=== PATIENT | female | born 1985 | race Caucasian/White ===

== ENCOUNTER 2016-03-05 11:42 | Emergency (ER) | payer SELFPAY ==
[2016-03-05 11:46] VITALS: BP 120/55
--- NOTE | 2016-03-05 11:51 | ER Document Report ---
ED Medical Screen (RME) - General Stated Complaint: TOOTHACHE Time seen by provider: 11:50 Mode of Arrival: Ambulatory Information source: Patient Notes: 30-year-old female complaining of persistent first molar lower left infection and pain. sHe is waiting to get paid to see the dentist to get it pulled. it worsened when she ate something hot last night. TRAVEL OUTSIDE OF THE [place] IN LAST 30 DAYS: No - Related Data Allergies/Adverse Reactions: No Known Allergies Allergy (Verified 03/05/16 11:49) Past Medical History Past Surgical History: Reports: Hx Oral Surgery - Immunizations Immunizations up to date: Yes Hx Diphtheria, Pertussis, Tetanus Vaccination: Yes Physical Exam - Vital signs Vitals: Temp Pulse Resp BP Pulse Ox 97.6 F 117 H 16 120/55 L 100 03/05/16 11:45 03/05/16 11:45 03/05/16 11:45 03/05/16 11:45 03/05/16 11:45 Course - Vital Signs Vital signs: Temp Pulse Resp BP Pulse Ox 97.6 F 117 H 16 120/55 L 100 03/05/16 11:45 03/05/16 11:45 03/05/16 11:45 03/05/16 11:45 03/05/16 11:45
--- NOTE | 2016-03-05 12:16 | ER Document Report ---
ED General - General Chief Complaint: Toothache Stated Complaint: TOOTHACHE Time seen by provider: 12:10 Mode of Arrival: Ambulatory Notes: This is a 30-year-old female that presents today with tooth pain. Patient states that she had two of her back teeth on the left side pulled a year ago. She's been having throbbing pain since February 13 2016. Pain is aggravated with eating. Pain radiates up to the left ear. She states she vomited one time today and admits to nausea. Denies hematemesis. Denies fever chills shortness of breath. Admits to odynophagia, denies dysphagia. She is able to eat solid and drink liquids. She is not scheduled for a dentist appointment, but she is seen by family dentistry. She states that she plans on going this Friday. TRAVEL OUTSIDE OF THE [place] IN LAST 30 DAYS: No - Related Data Allergies/Adverse Reactions: No Known Allergies Allergy (Verified 03/05/16 11:49) Past Medical History - General Information source: Patient - Social History Smoking Status: Current Every Day Smoker - Smokes 8 cigarettes per day for the past 20 years Chew tobacco use (# tins/day): No Frequency of alcohol use: Rare Family History: Reviewed & Not Pertinent Patient has suicidal ideation: No Patient has homicidal ideation: No Past Surgical History: Reports: Hx Oral Surgery - Immunizations Immunizations up to date: Yes Hx Diphtheria, Pertussis, Tetanus Vaccination: Yes Review of Systems - Review of Systems Constitutional: denies: Chills, Fever EENT: See HPI Cardiovascular: denies: Chest pain, Palpitations Respiratory: denies: Cough, Hurts to breathe Gastrointestinal: denies: Abdomen distended, Abdominal pain Genitourinary: No symptoms reported Musculoskeletal: See HPI Skin: No symptoms reported Hematologic/Lymphatic: No symptoms reported Neurological/Psychological: No symptoms reported Physical Exam - Vital signs Vitals: Temp Pulse Resp BP Pulse Ox 97.6 F 117 H 16 120/55 L 100 03/05/16 11:45 03/05/16 11:45 03/05/16 11:45 03/05/16 11:45 03/05/16 11:45 - General General appearance: Appears well, Alert In distress: None - HEENT Eyes: Normal Conjunctiva: Normal Teeth diagram: 1 - dental fracture. dental decay noted 2 - two teeth pulled 3 - dental decay 4 - dental decay Pharynx: Normal - No tonsillar exudates or erythema. No hypertrophy. No: Peritonsillar abscess, Tonsillar hypertrophy - Respiratory Respiratory status: No respiratory distress Chest status: Nontender Breath sounds: Normal. No: Rales, Rhonchi, Stridor, Wheezing Chest palpation: Normal - Cardiovascular Rhythm: Regular Heart sounds: Normal auscultation - Abdominal Inspection: Normal Distension: No distension - Extremities General upper extremity: Normal inspection General lower extremity: Normal inspection - Neurological Cognition: Normal. No: Confused - Psychological Associated symptoms: Normal affect, Normal mood - Skin Skin Temperature: Warm Skin Moisture: Dry Skin Color: Normal Course - Re-evaluation Re-evalutation: 03/05/16 13:07 Patient stated that she would follow-up with dentist as Friday once she gets her paycheck. She was able to swallow water when I gave her a cup of water to drink from. No water was retained in the mouth. She spoke in full sentences. - Vital Signs Vital signs: Temp Pulse Resp BP Pulse Ox 97.6 F 117 H 16 120/55 L 100 03/05/16 11:45 03/05/16 11:45 03/05/16 11:45 03/05/16 11:45 03/05/16 11:45 Discharge - Discharge Clinical Impression: Pain, dental Condition: Good Disposition: HOME, SELF-CARE Additional Instructions: Return to the emergency department if symptoms worsen. Follow-up with primary care and dentist as soon as possible. Prescriptions: Ondansetron [Zofran Odt 4 mg Tablet] 1 - 2 tab PO Q4H PRN #15 tab.rapdis PRN Reason: For Nausea/Vomiting Penicillin V Potassium [Penicillin Vk 500 mg Tablet] 500 mg PO BID #20 tablet Forms: Return to Work Referrals: DENTISTRY [Provider Group] - Follow up as needed
[2016-03-05] MEDS ORDERED: HYDROCODONE/ACETAMINOPHEN 5-325 MG 6 TAB/DSPK PO PRN (12:24)
== END 2016-03-05 12:48 | disposition home or self-care (01) ==
LOC: ER 11:42
DX: K08.89 Other specified disorders of teeth and supporting structures (principal); K02.9 Dental caries, unspecified; R11.2 Nausea with vomiting, unspecified; F17.210 Nicotine dependence, cigarettes, uncomplicated
CPT/HCPCS: 99282

== ENCOUNTER 2016-03-17 00:57 | Emergency (ER) | payer SELFPAY | END 2016-03-17 01:20 | disposition left against medical advice (07) | LOC: ER 00:57 | DX: Z53.21 Procedure and treatment not carried out due to patient leaving prior to being seen by health care provider (principal) ==

== ENCOUNTER 2016-03-17 11:22 | Emergency (ER) | payer SELFPAY ==
[2016-03-17] MEDS ORDERED: DIPHENHYDRAMINE HCL 25 MG CAPSULE PO ONE (11:53)
[2016-03-17] MEDS ORDERED: METOCLOPRAMIDE HCL 10 MG TABLET PO ONE (11:53)
--- NOTE | 2016-03-17 12:00 | ER Document Report ---
ED Medical Screen (RME) - General Stated Complaint: VOMITING Mode of Arrival: Ambulatory Information source: Patient Notes: 30 y/o F presents to ED c/o intermittently persistent n/v and abd pain over the last month. States is but unsure how far along. LMP 12/22/15. Denies fever, vaginal bleeding or discharge. I have greeted and performed a rapid initial assessment of this patient. A comprehensive ED assessment and evaluation of the patient, analysis of test results and completion of the medical decision making process will be conducted by additional ED providers. TRAVEL OUTSIDE OF THE [place] IN LAST 30 DAYS: No - Related Data Allergies/Adverse Reactions: No Known Allergies Allergy (Verified 03/17/16 11:52) Past Medical History - Social History Frequency of alcohol use: None Drug Abuse: Marijuana Renal/ Medical History: Denies: Hx Peritoneal Dialysis Past Surgical History: Reports: Hx Oral Surgery - Immunizations Immunizations up to date: Yes Hx Diphtheria, Pertussis, Tetanus Vaccination: Yes Physical Exam - Vital signs Vitals: Temp Pulse Resp BP Pulse Ox 97.7 F 65 20 100/60 100 03/17/16 11:49 03/17/16 11:49 03/17/16 11:49 03/17/16 11:49 03/17/16 11:49 - General General appearance: Alert In distress: None - Respiratory Respiratory status: No respiratory distress Course - Vital Signs Vital signs: Temp Pulse Resp BP Pulse Ox 97.7 F 65 20 100/60 100 03/17/16 11:49 03/17/16 11:49 03/17/16 11:49 03/17/16 11:49 03/17/16 11:49
[2016-03-17 12:25] LABS: ABSOLUTE LYMPHOCYTES (AUTO) 1.3 10^3/uL (0.5-4.7); ABSOLUTE MONOCYTES (AUTO) 0.4 10^3/uL (0.1-1.4); ABSOLUTE NEUT (AUTO) 5.2 10^3/uL (1.7-8.2); BASOPHILS % (AUTO) 0.6 % (0-2); EOSINOPHILS % (AUTO) 0.6 % (0-6); HEMATOCRIT 42.4 % (36.0-47.0); HEMOGLOBIN 13.9 g/dL (12.0-15.5); HGB HCT DIFFERENCE -0.7; LYMPHOCYTES % (AUTO) 18.2 % (13-45); MEAN CORPUSCULAR HEMOGLOBIN 27.1 pg (27.0-33.4); MEAN CORPUSCULAR HGB CONC 32.7 g/dL (32.0-36.0); MEAN CORPUSCULAR VOLUME 83 fl (80-97); MONOCYTES % (AUTO) 5.6 % (3-13); RED BLOOD COUNT 5.11 10^6/uL (3.72-5.28); RED CELL DISTRIBUTION WIDTH 15.1 % (11.5-14.0); WHITE BLOOD COUNT 6.9 10^3/uL (4.0-10.5)
[2016-03-17 12:27] LABS: APPEARANCE,URINE SLIGHTLY-CLOUDY; BILIRUBIN,URINE NEGATIVE (NEGATIVE); GLUCOSE, URINE NEGATIVE (NEGATIVE); KETONES,URINE 80 mg/dL (NEGATIVE); LEUKOCYTE ESTERASE,URINE TRACE (NEGATIVE); NITRITE,URINE NEGATIVE (NEGATIVE); PROTEIN,URINE NEGATIVE (NEGATIVE); UROBILINOGEN,URINE NEGATIVE mg/dL (<2.0)
[2016-03-17 12:44] LABS: ALANINE AMINOTRANSFERASE 13 U/L (9-52); ALBUMIN 4.8 g/dL (3.5-5.0); ALKALINE PHOSPHATASE 54 U/L (38-126); ASPARTATE AMINO TRANSFERASE 21 U/L (14-36); BILIRUBIN,TOTAL 0.9 mg/dL (0.2-1.3); BLOOD UREA NITROGEN 14 mg/dL (7-20); CALCIUM 9.8 mg/dL (8.4-10.2); CARBON DIOXIDE 15 mmol/L (22-30); CHLORIDE 100 mmol/L (98-107); CREATININE RESULT 0.64 mg/dL (0.52-1.25); GLUCOSE 51 mg/dL (75-110); LIPASE 112.5 U/L (23-300); SODIUM 135.8 mmol/L (137-145); TOTAL PROTEIN 8.4 g/dL (6.3-8.2)
[2016-03-17 13:03] LABS: ANION GAP 21 (5-19)
[2016-03-17] MEDS ORDERED: DEXTROSE 5%-NORMAL SALINE 1,000 ML IV ONE (13:51)
--- NOTE | 2016-03-17 14:21 | ER Document Report ---
ED General - General Chief Complaint: Abdominal Pain Stated Complaint: VOMITING Time seen by provider: 14:20 Mode of Arrival: Ambulatory Information source: Patient Notes: This is a 30-year-old female 9 para 4, for termination of pregnancies, last normal menstrual period December 21 presents to the emergency room with nausea, vomiting, abdominal cramping. Patient denies vaginal bleeding. TRAVEL OUTSIDE OF THE [place] IN LAST 30 DAYS: No - HPI Onset: Last week Onset/Duration: Gradual Quality of pain: No pain Severity: None Pain Level: Denies Associated symptoms: Nausea, Vomiting. denies: Chills, Nonproductive cough, Productive cough, Diarrhea, Fever, Shortness of breath Exacerbated by: Denies Relieved by: Denies Similar symptoms previously: No Recently seen / treated by doctor: No - Related Data Allergies/Adverse Reactions: No Known Allergies Allergy (Verified 03/17/16 11:52) Past Medical History - General Information source: Patient - Social History Smoking Status: Former Smoker Cigarette use (# per day): No Chew tobacco use (# tins/day): No Frequency of alcohol use: None Drug Abuse: Marijuana Family History: Reviewed & Not Pertinent Patient has suicidal ideation: No Patient has homicidal ideation: No - Medical History Medical History: Negative Renal/ Medical History: Denies: Hx Peritoneal Dialysis Past Surgical History: Reports: Hx Oral Surgery - Immunizations Immunizations up to date: Yes Hx Diphtheria, Pertussis, Tetanus Vaccination: Yes Review of Systems - Review of Systems Constitutional: denies: Chills, Fever EENT: No symptoms reported Cardiovascular: No symptoms reported Respiratory: No symptoms reported Gastrointestinal: See HPI Genitourinary: No symptoms reported Female Genitourinary: No symptoms reported Musculoskeletal: No symptoms reported Skin: No symptoms reported Hematologic/Lymphatic: No symptoms reported Neurological/Psychological: No symptoms reported Physical Exam - Vital signs Vitals: Temp Pulse Resp BP Pulse Ox 97.7 F 65 20 100/60 100 03/17/16 11:49 03/17/16 11:49 03/17/16 11:49 03/17/16 11:49 03/17/16 11:49 Notes: Physical exam: GENERAL: 30-year-old female, alert and oriented 3, no acute distress HEAD: Atraumatic, normocephalic. EYES: Pupils equal round and reactive to light, extraocular movements intact, sclera anicteric, conjunctiva are normal. ENT: TMs normal, nares patent, oropharynx clear without exudates. Moist mucous membranes. NECK: Normal range of motion, supple without lymphadenopathy or JVD. LUNGS: Breath sounds clear to auscultation bilaterally and equal. No wheezes rales or rhonchi. HEART: Regular rate and rhythm without murmurs, rubs or gallops. ABDOMEN: Soft, nontender, normoactive bowel sounds. No guarding, no rebound. No masses appreciated. EXTREMITIES: Normal range of motion, no pitting or edema. No clubbing or cyanosis. NEUROLOGICAL: Cranial nerves II through XII grossly intact. Normal speech, normal gait. PSYCH: Normal mood, normal affect. SKIN: Warm, Dry, normal turgor, no rashes or lesions noted. Course - Vital Signs Vital signs: Temp Pulse Resp BP Pulse Ox 98.0 F 68 16 110/62 100 03/17/16 18:20 03/17/16 18:20 03/17/16 18:20 03/17/16 18:20 03/17/16 18:20 - Laboratory Result Diagrams: 03/17/16 12:08 03/17/16 12:08 Laboratory results interpreted by me: 03/17/16 03/17/16 03/17/16 12:08 12:08 12:08 RDW 15.1 H Sodium 135.8 L Carbon Dioxide 15 L Anion Gap 21 H Glucose 51 L Total Protein 8.4 H Beta HCG, Quant 007851.00 H Urine Ketones 80 H Ur Leukocyte Esterase TRACE H - Diagnostic Test Radiology reviewed: Image reviewed, Reports reviewed - Intrauterine Discharge - Discharge Clinical Impression: Hyperemesis gravidarum Condition: Stable Disposition: HOME, SELF-CARE Instructions: Antinausea Medication ([facility]), Reglan ([facility]), Hyperemesis Gravidarum ([facility]) Additional Instructions: Recommendations: Drink fluids: Have Gatorade and half orders good. He wanted have some sugar and the fluid you drink. Advance diet slowly. Eat small, frequent meals. Vitamin B sixes sometimes good for nausea. Unisom [id number] is sometimes effective. Peppermint and jero products are helpful. Take Reglan as needed for nausea. Follow-up with an OB doctor: I left the number for the women[facility] clinic. Return to the emergency room if you're unable to tolerate fluids. Prescriptions: Metoclopramide HCl [Reglan 10 mg Tablet] 1 - 2 tab PO ASDIR PRN #25 tablet PRN Reason: Referrals: SRAVANTHI PHAM MD [ACTIVE STAFF] - Follow up as needed (This is the number for the woman[facility] clinic: Call for an appointment.)
[2016-03-17 18:21] VITALS: BP 110/62
== END 2016-03-17 18:20 | disposition home or self-care (01) ==
LOC: ER 11:22
DX: O21.0 Mild hyperemesis gravidarum (principal); O26.891 Other specified pregnancy related conditions, first trimester; R10.9 Unspecified abdominal pain; Z3A.12 12 weeks gestation of pregnancy; Z87.891 Personal history of nicotine dependence
CPT/HCPCS: 36415; 76801; 80053; 81001; 83690; 84702; 85025; 96365; 99284

== ENCOUNTER 2016-08-29 23:03 | Outpatient (CLI) | payer MEDICAID ==
[2016-08-29 23:45] LABS: APPEARANCE,URINE CLEAR; BILIRUBIN,URINE NEGATIVE (NEGATIVE); GLUCOSE, URINE NEGATIVE (NEGATIVE); KETONES,URINE NEGATIVE (NEGATIVE); LEUKOCYTE ESTERASE,URINE NEGATIVE (NEGATIVE); NITRITE,URINE NEGATIVE (NEGATIVE); PROTEIN,URINE NEGATIVE (NEGATIVE); URINE SPECIFIC GRAVITY 1.003; UROBILINOGEN,URINE NEGATIVE mg/dL (<2.0)
[2016-08-29 23:56] LABS: URINE BARBITURATES SCREEN NEGATIVE; URINE METHADONE SCREEN NEGATIVE; URINE OPIATES LOW NEGATIVE; URINE PHENCYCLIDINE SCREEN NEGATIVE
--- NOTE | 2016-08-30 00:46 | Non Stress Test Report ---
Non Stress Test Datetime Report Generated by CPN: 08/30/2016 00:46 DEMOGRAPHIC EGA NST: 32.3 INDICATION Indication for Study: Ordered by Provider MONITORING Monitor Explained: Monitor Explained; Test Explained; Patient Verbalized Understanding Time on Monitor: 08/29/2016 23:27 Time off Monitor: 08/30/2016 00:43 NST Duration: 76 NST INTERVENTIONS NST Interventions: None BABY A: [id number] BABY A Movement : Present Contraction Frequency : none FHR Baseline : 130 Accelerations : 15X15 Decelerations : None Variability : Moderate 6-25bpm NST Review: Meets Criteria for Reactive NST NST Review and Verified By : Denise Espinal, RN NST Results: Reactive NST REPORT Report Trigger: Send Report
== END 2016-08-30 00:54 | disposition home or self-care (01) ==
LOC: LC 23:03
PROVIDERS: ATTEND Student in an Organized Health Care Education/Training Program
PROC: 4A1HXCZ Monitoring of Products of Conception, Cardiac Rate, External Approach (ICD-10-PCS; principal; 2016-08-29)
DX: Z34.93 Encounter for supervision of normal pregnancy, unspecified, third trimester (principal); Z36 Encounter for antenatal screening of mother; Z3A.32 32 weeks gestation of pregnancy
CPT/HCPCS: 59025; 80307; 81001

== ENCOUNTER 2016-10-15 05:33 | Outpatient (CLI) | payer MEDICAID ==
[2016-10-15 06:07] LABS: APPEARANCE,URINE SLIGHTLY-CLOUDY; BILIRUBIN,URINE NEGATIVE (NEGATIVE); GLUCOSE, URINE NEGATIVE (NEGATIVE); KETONES,URINE NEGATIVE (NEGATIVE); LEUKOCYTE ESTERASE,URINE NEGATIVE (NEGATIVE); NITRITE,URINE NEGATIVE (NEGATIVE); PROTEIN,URINE NEGATIVE (NEGATIVE); URINE SPECIFIC GRAVITY 1.003; UROBILINOGEN,URINE NEGATIVE mg/dL (<2.0)
[2016-10-15 06:21] LABS: URINE BARBITURATES SCREEN NEGATIVE; URINE METHADONE SCREEN NEGATIVE; URINE OPIATES LOW NEGATIVE; URINE PHENCYCLIDINE SCREEN NEGATIVE
--- NOTE | 2016-10-15 06:52 | Non Stress Test Report ---
Non Stress Test Datetime Report Generated by CPN: 10/15/2016 06:52 DEMOGRAPHIC Test Number: 2 EGA NST: 39.1 INDICATION Indication for Study: Ordered by Provider MONITORING Monitor Explained: Monitor Explained; Test Explained; Patient Verbalized Understanding Time on Monitor: 10/15/2016 05:47 Time off Monitor: 10/15/2016 06:33 NST Duration: 46 NST INTERVENTIONS NST Interventions: PO Hydration; Reposition Patient Physician Notified NST: Dr. Ace BABY A: [id number] BABY A Movement : Present; Decreased Contraction Frequency : x1 FHR Baseline : 125 Accelerations : 15X15 Decelerations : None Variability : Moderate 6-25bpm NST Review: Meets Criteria for Reactive NST NST Review and Verified By : ZHANNA Chacon Results: Reactive NST REPORT Report Trigger: Send Report
== END 2016-10-15 06:46 | disposition home or self-care (01) ==
LOC: LC 05:33
PROVIDERS: ATTEND Obstetrics & Gynecology
PROC: 4A1HXCZ Monitoring of Products of Conception, Cardiac Rate, External Approach (ICD-10-PCS; principal; 2016-10-15)
DX: O36.8130 Decreased fetal movements, third trimester, not applicable or unspecified (principal); Z3A.39 39 weeks gestation of pregnancy
CPT/HCPCS: 59025; 80307; 81005

== ENCOUNTER 2016-10-22 19:03 | Outpatient (CLI) | payer MEDICAID ==
[2016-10-22 19:44] LABS: APPEARANCE,URINE CLOUDY; BILIRUBIN,URINE NEGATIVE (NEGATIVE); GLUCOSE, URINE 50 mg/dL (NEGATIVE); KETONES,URINE NEGATIVE (NEGATIVE); LEUKOCYTE ESTERASE,URINE TRACE (NEGATIVE); NITRITE,URINE NEGATIVE (NEGATIVE); PROTEIN,URINE NEGATIVE (NEGATIVE); URINE SPECIFIC GRAVITY 1.005; UROBILINOGEN,URINE NEGATIVE mg/dL (<2.0)
[2016-10-22 19:59] LABS: URINE BARBITURATES SCREEN NEGATIVE; URINE METHADONE SCREEN NEGATIVE; URINE OPIATES LOW NEGATIVE; URINE PHENCYCLIDINE SCREEN NEGATIVE
--- NOTE | 2016-10-22 20:24 | Non Stress Test Report ---
Non Stress Test Datetime Report Generated by CPN: 10/22/2016 20:23 DEMOGRAPHIC Test Number: 3 EGA NST: 40.1 INDICATION Indication for Study: Other Indication for Study (NST) Other: LC MONITORING Monitor Explained: Monitor Explained; Test Explained; Patient Verbalized Understanding Time on Monitor: 10/22/2016 19:30 Time off Monitor: 10/22/2016 20:12 NST Duration: 42 NST INTERVENTIONS NST Interventions: PO Hydration; Reposition Patient Physician Notified NST: Dr Ace BABY A: [id number] BABY A Movement : Present Contraction Frequency : Irritability FHR Baseline : 135 Accelerations : 15X15 Decelerations : None Variability : Moderate 6-25bpm NST Review: Meets Criteria for Reactive NST NST Review and Verified By : Christopher Ramirez RN NST Results: Reactive NST REPORT Report Trigger: Send Report
== END 2016-10-22 20:16 | disposition home or self-care (01) ==
LOC: LC 19:03
PROVIDERS: ATTEND Obstetrics & Gynecology
PROC: 4A1HXCZ Monitoring of Products of Conception, Cardiac Rate, External Approach (ICD-10-PCS; principal; 2016-10-22)
DX: O47.1 False labor at or after 37 completed weeks of gestation (principal); Z3A.40 40 weeks gestation of pregnancy
CPT/HCPCS: 59025; 80307; 81005

== ENCOUNTER 2016-10-26 10:56 | Inpatient (IN) | payer MEDICAID ==
[2016-10-26] MEDS ORDERED: RINGERS SOLUTION,LACTATED 1,000 ML IV PRN (11:19)
[2016-10-26] MEDS ORDERED: RINGERS SOLUTION,LACTATED 1,000 ML IV ONE (11:19)
[2016-10-26] MEDS ORDERED: BENZOIN/ALOE VERA/STORAX/TOLU TINCTURE 60 ML TP PRN (11:30)
[2016-10-26] MEDS ORDERED: FENTANYL/BUPIVACAINE/NS/PF 200 MCG/100 ML RTUINJ EPI PRN (11:30)
[2016-10-26] MEDS ORDERED: BUPIVACAINE HCL 0.25 % INJ/PF (2.5 MG/1 ML) 30 ML VIAL INFIL PRN (11:30)
[2016-10-26] MEDS ORDERED: FENTANYL CITRATE INJ/PF 100 MCG/2 ML AMPUL EPI PRN (11:30)
[2016-10-26] MEDS ORDERED: EPHEDRINE SULFATE INJ 50 MG/1 ML AMPULE IV PRN (11:30)
[2016-10-26 11:35] LABS: APPEARANCE,URINE CLEAR; BILIRUBIN,URINE NEGATIVE (NEGATIVE); GLUCOSE, URINE NEGATIVE (NEGATIVE); KETONES,URINE NEGATIVE (NEGATIVE); LEUKOCYTE ESTERASE,URINE TRACE (NEGATIVE); NITRITE,URINE NEGATIVE (NEGATIVE); PROTEIN,URINE NEGATIVE (NEGATIVE); URINE SPECIFIC GRAVITY 1.003; UROBILINOGEN,URINE NEGATIVE mg/dL (<2.0)
[2016-10-26] MEDS ORDERED: MISOPROSTOL 0.2 MG TABLET ONE (11:43)
[2016-10-26] MEDS ORDERED: OXYTOCIN/NORMAL SALINE 20 UNIT/1,000 ML RTUINJ ONE (11:44)
[2016-10-26] MEDS ORDERED: LIDOCAINE 1% INJ-PF (10 MG/ML) 30 ML SDV ONE (11:44)
[2016-10-26 11:57] LABS: ABSOLUTE EOSINOPHILS # (AUTO) 0.1 10^3/uL (0.0-0.6); ABSOLUTE LYMPHOCYTES (AUTO) 1.1 10^3/uL (0.5-4.7); ABSOLUTE MONOCYTES (AUTO) 0.7 10^3/uL (0.1-1.4); ABSOLUTE NEUT (AUTO) 9.7 10^3/uL (1.7-8.2); BASOPHILS % (AUTO) 0.2 % (0-2); EOSINOPHILS % (AUTO) 0.7 % (0-6); HEMATOCRIT 34.3 % (36.0-47.0); HEMOGLOBIN 11.2 g/dL (12.0-15.5); HGB HCT DIFFERENCE -0.7; LYMPHOCYTES % (AUTO) 9.8 % (13-45); MEAN CORPUSCULAR HEMOGLOBIN 28.2 pg (27.0-33.4); MEAN CORPUSCULAR HGB CONC 32.7 g/dL (32.0-36.0); MEAN CORPUSCULAR VOLUME 86 fl (80-97); MONOCYTES % (AUTO) 6.2 % (3-13); RED BLOOD COUNT 3.98 10^6/uL (3.72-5.28); RED CELL DISTRIBUTION WIDTH 13.7 % (11.5-14.0); SEGMENTED NEUTROPHILS % (AUTO) 83.1 % (42-78); WHITE BLOOD COUNT 11.7 10^3/uL (4.0-10.5)
[2016-10-26 11:58] LABS: URINE BARBITURATES SCREEN NEGATIVE; URINE METHADONE SCREEN NEGATIVE; URINE OPIATES LOW NEGATIVE; URINE PHENCYCLIDINE SCREEN NEGATIVE
[2016-10-26] MEDS ORDERED: FENTANYL CITRATE INJ/PF 100 MCG/2 ML AMPUL ONE (12:18)
[2016-10-26] MEDS ORDERED: EPHEDRINE SULFATE INJ 50 MG/1 ML AMPULE ONE (12:18)
[2016-10-26] MEDS ORDERED: PHENYLEPHRINE HCL INJ/PF 10 MG/1 ML SDV ONE (12:18)
[2016-10-26] MEDS ORDERED: BUPIVACAINE HCL 0.25 % INJ/PF (2.5 MG/1 ML) 30 ML VIAL ONE (12:19)
[2016-10-26] MEDS ORDERED: FENTANYL/BUPIVACAINE/NS/PF 200 MCG/100 ML RTUINJ EPI ONE (12:19)
[2016-10-26] MEDS ORDERED: DIPH/PERTUSS(ACELL)/TETANUS VAC/PF 0.5 ML SYR (>=10YO) IM PRN (14:55)
[2016-10-26] MEDS ORDERED: ZOLPIDEM TARTRATE 5 MG TABLET PO PRN (14:55)
[2016-10-26] MEDS ORDERED: GLYCERIN/WITCH HAZEL LEAF 1 EACH MED..PAD TP PRN (14:55)
[2016-10-26] MEDS ORDERED: MAGNESIUM HYDROXIDE SUSP 30 ML UDCUP PO PRN (14:55)
[2016-10-26] MEDS ORDERED: BENZOCAINE/MENTHOL AEROSOL SPRAY 56 ML TOP PRN (14:55)
[2016-10-26] MEDS ORDERED: PROMETHAZINE HCL 25 MG SUPP.RECT PR PRN (14:55)
[2016-10-26] MEDS ORDERED: DIPHENHYDRAMINE HCL 25 MG CAPSULE PO PRN (14:55)
[2016-10-26] MEDS ORDERED: DIBUCAINE 1% OINTMENT 28 GM TP PRN (14:55)
[2016-10-26] MEDS ORDERED: ACETAMINOPHEN 325 MG TABLET PO PRN (14:55)
[2016-10-26] MEDS ORDERED: ACETAMINOPHEN WITH CODEINE #3 TABLET PO PRN (14:55)
[2016-10-26] MEDS ORDERED: NA PHOS,M-B/NA PHOS,DI-BA (ADULT) 133 ML ENEMA PR PRN (14:55)
[2016-10-26] MEDS ORDERED: ACETAMINOPHEN 650 MG SUPP.RECT PR PRN (14:55)
[2016-10-26] MEDS ORDERED: PROMETHAZINE HCL INJ 25 MG/1 ML VIAL IV PRN (14:55)
[2016-10-26] MEDS ORDERED: MEASLES,MUMPS&RUBELLA VACC/PF 0.5 ML VIAL SUBCUT PRN (14:55)
[2016-10-26] MEDS ORDERED: OXYTOCIN/NORMAL SALINE 20 UNIT/1,000 ML RTUINJ IV PRN (14:55)
[2016-10-26] MEDS ORDERED: PSEUDOEPHEDRINE HCL 30 MG TABLET PO PRN (14:55)
[2016-10-26] MEDS ORDERED: PROMETHAZINE HCL 25 MG TABLET PO PRN (14:55)
[2016-10-26] MEDS ORDERED: IBUPROFEN 800 MG TABLET ONE (16:06)
[2016-10-26] MEDS: IBUPROFEN 800 MG TABLET PO SCH (16:17)
--- NOTE | 2016-10-26 17:10 | Admission Physical ---
Datetime Report Generated by CPN: 10/26/2016 17:10 CURRENT ADMISSION Chief Complaint: Uterine Contractions Indication for Induction: Not Applicable Admit Plan: Admit to Unit; Initiate Labor Protocol ALLERGIES Medication Allergies: No Medication Allergies: No Known Allergies (10/25/2016) Medication Allergies: No Known Allergies (10/22/2016) Medication Allergies: No Known Allergies (10/15/2016) Medication Allergies: No Known Allergies (03/17/2016) Latex: Unknown Food Allergies: N/A Environmental Allergies: N/A OBSTETRICAL HISTORY EDC: 10/21/2016 00:00 : 9 Para: 4 Term: 4 : 0 SAB: 0 IAB: 4 Ectopic: 0 Livin Cesareans: 0 VBACs: 0 Multiple Births: 0 Gestational Diabetes: No Rh Sensitization: No Incompetent Cervix: No KENNETH: No Infertility: No ART Treatment: No Uterine Anomaly: No IUGR: No Hx Previous C/S: No Macrosomia: No Hx Loss/Stillborn: No PIH: No Hx : No Placenta Previa/Abruption: No Depression/PP Depression: Yes PTL/PROM: No Post Hemorrhage: No Current Procedures: Ultrasound Obstetrical History Comments: G1--IAB 1998 G2-----epidural--7lb 7 oz G3--IAB 2006 G4-----natural--7lb G5-----natural--7lb 6oz G6--2014 IAB - IAB G8----epidural--7lb 3oz G9--Present SEE RECORDS Alcohol: No Marijuana : Yes Marijuana Frequency: Occasional Previous Treatment: None Marijuana Comments: last use June 2016 Cocaine: No Other Illicit Drugs: No Cigarettes: Current Everyday Smoker. [id number] Cigarette Frequency: > 10 per day Advised to Stop: Yes MEDICAL HISTORY Diabetes: No Blood Transfusion: No Pulmonary Disease (Asthma, TB): No Breast Disease: No Hypertension: No Transformer Tester Surgery: No Heart Disease: No Hosp/Surgery: No Autoimmune Disorder: No Anesthetic Complications: No Kidney Disease: Yes Abnormal Pap Smear: No Neuro/Epilepsy: No Psychiatric Disorders: Yes Other Medical Diseases: No Hepatitis/Liver Disease: No Significant Family History: No Varicosities/Phlebitis: No Trauma/Violence : No Thyroid Dysfunction: No Medical History Comments: UTIs oral surgery 2013 INFECTIOUS HISTORY Gonorrhea: Yes Genital Herpes: No Chlamydia: No Tuberculosis: No Syphilis: No Hepatitis: No HIV/AIDS Exposure: No Rash or Viral Illness: No HPV: No Infectious History Comments: hx gonorrhea PHYSICAL EXAM General: Normal HEENT: Normal Neurologic: Normal Thyroid: Normal Heart: Normal Lungs: Normal Breast: Deferred Back: Normal Abdomen: Normal Genitourinary Exam: Normal Extremities: Normal DTRs: Normal Pelvic Type: Adequate Vital Signs: Reviewed VAGINAL EXAM Dilatation: 6 Effacement: 90 Station: 0 Contraction Comments: q 2-3 MEMBRANES Membranes: Intact FETUS A EGA: 40.5 Monitoring: External US FHR- Baseline: 130 Variability: Moderate 6-25bpm Accelerations: 15X15 Decelerations: None FHR Category: Category I Presentation: Vertex Admit Comment: 31yo with h/o x 4 and pelvis proven to 7#7oz presents with regular uterine ctx at 40+5ega. GBS negative. Anticpate . Pelvis adequate for BELINDA. last EFW 7#14oz. Smoker. Antcipate PLANS FOR LABOR AND DELIVERY Labor and Delivery: None Pain Management: Epidural Feeding Preference: Formula Benefit of Breast Feed Discussed: Yes Circumcision: Yes INFORMED CONSENT Informed Consent Obtained: Vaginal Delivery; Risks, Benefits and Alternatives Discussed Signature: with User ID: [email or web address]
[2016-10-26] MEDS: FERROUS SULFATE 325 MG TABLET PO SCH (18:55)
[2016-10-26] MEDS: DOCUSATE SODIUM 100 MG CAPSULE PO SCH (18:56)
[2016-10-26] MEDS: FAMOTIDINE 20 MG TABLET PO SCH (21:28)
[2016-10-27] MEDS: ACETAMINOPHEN WITH CODEINE #3 TABLET PO PRN ×4 (00:58→13:54)
[2016-10-27] MEDS: IBUPROFEN 800 MG TABLET PO SCH ×3 (05:19→21:51)
[2016-10-27 08:20] LABS: HEMATOCRIT 28.9 % (36.0-47.0); HEMOGLOBIN 9.8 g/dL (12.0-15.5); HGB HCT DIFFERENCE 0.5; MEAN CORPUSCULAR HEMOGLOBIN 28.5 pg (27.0-33.4); MEAN CORPUSCULAR HGB CONC 33.8 g/dL (32.0-36.0); MEAN CORPUSCULAR VOLUME 84 fl (80-97); RED BLOOD COUNT 3.43 10^6/uL (3.72-5.28); RED CELL DISTRIBUTION WIDTH 13.5 % (11.5-14.0); WHITE BLOOD COUNT 14.2 10^3/uL (4.0-10.5)
--- NOTE | 2016-10-27 09:25 | PDOC PROGRESS REPORT ---
Subjective-OB Subjective: Post Delivery Day: 1 31 year old. Denies any needs at this time, lochia is stable, pain well controlled, voiding without difficulty. Physical Exam (OB) Vital Signs: Temp Pulse Resp BP Pulse Ox 97.7 F 77 20 85/58 L 100 10/27/16 07:39 10/27/16 07:39 10/27/16 07:39 10/27/16 07:39 10/27/16 07:39 Intake & Output 10/26/16 10/27/16 10/28/16 06:59 06:59 06:59 Weight 63.5 kg - PIH/Pre-Eclampsia DTR's: 2 + Clonus: Negative Headache: Absent Epigastric Pain: No Visual Changes: No - Lochia Lochia Amount: Small 10-25 ml Lochia Color: Rubra/Red - Abdomen Description: Soft, Flat Hernia Present: No Fundal Description: Firm, Midline Fundal Height: u/u - u/2 Objective-Diagnostic Laboratory: 10/27/16 07:34 10/26/16 10/26/16 10/26/16 11:02 11:30 11:30 WBC 11.7 H RBC 3.98 Hgb 11.2 L Hct 34.3 L MCV 86 MCH 28.2 MCHC 32.7 RDW 13.7 Plt Count 142 L Seg Neutrophils % 83.1 H Lymphocytes % 9.8 L Monocytes % 6.2 Eosinophils % 0.7 Basophils % 0.2 Absolute Neutrophils 9.7 H Absolute Lymphocytes 1.1 Absolute Monocytes 0.7 Absolute Eosinophils 0.1 Absolute Basophils 0.0 Urine Color STRAW Urine Appearance CLEAR Urine pH 8.0 Ur Specific [place] 1.003 Urine Protein NEGATIVE Urine Glucose (UA) NEGATIVE Urine Ketones NEGATIVE Urine Blood SMALL H Urine Nitrite NEGATIVE Ur Leukocyte Esterase TRACE H Blood Type O POSITIVE Antibody Screen NEGATIVE 10/27/16 07:34 WBC 14.2 H RBC 3.43 L Hgb 9.8 L Hct 28.9 L MCV 84 MCH 28.5 MCHC 33.8 RDW 13.5 Plt Count 147 L Seg Neutrophils % Lymphocytes % Monocytes % Eosinophils % Basophils % Absolute Neutrophils Absolute Lymphocytes Absolute Monocytes Absolute Eosinophils Absolute Basophils Urine Color Urine Appearance Urine pH Ur Specific [place] Urine Protein Urine Glucose (UA) Urine Ketones Urine Blood Urine Nitrite Ur Leukocyte Esterase Blood Type Antibody Screen Assessment and Plan(PN) - Assessment and Plan (1) Vaginal delivery Is this a current diagnosis for this admission?: Yes Plan: routine pp care - Time Spent with Patient Time with patient: Less than 15 minutes Critical Time spent with patient: Less than 15 minutes Medications reviewed and adjusted accordingly: Yes - Disposition Anticipated Discharge: Home Within: within 24 hours
[2016-10-27] MEDS: SENNOSIDES/DOCUSATE 8.6-50 MG 1 EACH TABLET PO SCH (09:53)
[2016-10-27] MEDS: DOCUSATE SODIUM 100 MG CAPSULE PO SCH ×2 (09:53→18:47)
[2016-10-27] MEDS: PRENATAL VITAMIN W-O CA NO5/FE FUMARATE/FA CAPSULE PO SCH (09:53)
[2016-10-27] MEDS: FERROUS SULFATE 325 MG TABLET PO SCH ×2 (09:53→18:47)
[2016-10-27] MEDS: FAMOTIDINE 20 MG TABLET PO SCH ×2 (09:53→21:52)
[2016-10-28] MEDS: IBUPROFEN 800 MG TABLET PO SCH ×2 (05:15→13:31)
[2016-10-28 09:02] VITALS: BP 103/55
[2016-10-28] MEDS: FERROUS SULFATE 325 MG TABLET PO SCH (09:49)
[2016-10-28] MEDS: FAMOTIDINE 20 MG TABLET PO SCH (09:49)
[2016-10-28] MEDS: DOCUSATE SODIUM 100 MG CAPSULE PO SCH (09:49)
[2016-10-28] MEDS: PRENATAL VITAMIN W-O CA NO5/FE FUMARATE/FA CAPSULE PO SCH (09:49)
[2016-10-28] MEDS: SENNOSIDES/DOCUSATE 8.6-50 MG 1 EACH TABLET PO SCH (09:49)
--- NOTE | 2016-10-28 09:51 | PDOC DISCHARGE SUMMARY ---
Final Diagnosis Discharge Date: 10/28/16 - Final Diagnosis (1) Vaginal delivery Is this a current diagnosis for this admission?: Yes Discharge Data - Discharge Medication Home Medications: Pnv No.122/Iron/Folic Acid [ Multi Tablet] 1 each PO DAILY 08/30/16 Docusate Sodium [Colace 100 mg Capsule] 100 mg PO BID #60 capsule 10/28/16 Ibuprofen [Motrin 800 mg Tablet] 800 mg PO Q8 #60 tablet 10/28/16 Gestational Age: 37 Reason(s) for Admission: Onset of Labor Procedures: NST Intrapartum Procedure(s): Spontaneous Vaginal Delivery - [place] Data Baby 1 Male Home with Mother: Yes Complications: No - Diagnosis Test Laboratory: Temp Pulse Resp BP Pulse Ox 97.9 F 66 16 103/55 L 100 10/28/16 09:01 10/28/16 09:01 10/28/16 09:01 10/28/16 09:01 10/28/16 09:01 10/26/16 10/26/16 10/27/16 11:02 11:30 07:34 RBC 3.98 3.43 L Hgb 11.2 L 9.8 L Hct 34.3 L 28.9 L Urine Opiates Screen NEGATIVE - Discharge information/Instructions Discharge Activity: Activity As Tolerated, Pelvic Rest, No tub bath Discharge Diet: Regular Disposition: HOME, SELF-CARE Follow up with: [facility] in: 4, Weeks
--- NOTE | 2016-10-31 11:25 | Delivery Summary ---
Del Sum A-C Datetime Report Generated by CPN: 10/31/2016 11:24 DELIVERY PERSONNEL DELIVERY PERSONNEL: [id number] Delivery Doctor:: Lena Davies MD Labor and Delivery Nurse:: Radha Valentin RN Nursery Nurse:: Livan Roberts RN Nursery Nurse:: Beba Brewer RN Student Observers:: DULCE MARIA Landis student Erection Shop Supervisor/OFFICE MACHINE INSTALLER: Hung Pichardo, REGULATORY SUBMISSIONS SPECIALIST MATERNAL INFORMATION Delivery Anesthesia: Epidural Medications After Delivery: Pitocin Bolus-Please Comment; Pitocin Drip 20 Units/1000ml NSS Estimated Blood Loss (ml): 200 Maternal Complications: None Provider Comments: VMI delivered in MIKEY presentation. No nuchal cord. SHoulders and body delivered without difficulty. COrd clamped and cut and to maternal abdomen. Placenta delivered intact spontaneously. FF at U. Apgars 7/9. Weight pending. Mother and baby stable upon provider leaving the room. LABOR SUMMARY EDC: 10/21/2016 00:00 No. Babies in Womb: 1 Attempted: No Labor Anesthesia: Epidural LABOR INFORMATION Reason for Induction: Not Applicable Onset of Labor: 10/26/2016 09:30 Complete Dilatation: 10/26/2016 13:49 Oxytocin: N/A Group B Beta Strep: Negative Antibiotics # of Doses: 0 Antibiotics Time of Last Dose: N/A Steroids Given: None Reason Steroids Not Administered: Not Applicable MEMBRANES Membranes Rupture Method: Spontaneous Rupture of Membranes: 10/26/2016 12:46 Length of Rupture (hr): 1.68 Amniotic Fluid Color: Clear Amniotic Fluid Amount: Small Amniotic Fluid Odor: Normal STAGES OF LABOR Stage 1 hr: 4 Stage 1 min: 19 Stage 2 hr: 0 Stage 2 min: 38 Stage 3 hr: 0 Stage 3 min: 7 Total Time in Labor hr: 5 Total Time in Labor min: 4 VAGINAL DELIVERY Episiotomy: None Laceration Extension: N/A Laceration Type: None Laceration Repair: Not Applicable Sponge Count Correct: N/A Sharps Count Correct: N/A BABY A INFORMATION Delivery Date/Time: 10/26/2016 14:27 Method of Delivery: Vaginal Born in Route : No : N/A Forceps: N/A Vacuum Extraction: N/A Shoulder Dystocia : No PRESENTATION/POSITION BABY A Presentation: Cephalic Cephalic Presentation: Vertex Vertex Position: Right Occipital Anterior Breech Presentation: N/A PLACENTA INFORMATION BABY A Placenta Delivery Time : 10/26/2016 14:34 Placenta Method of Delivery: Spontaneous Placenta Status: Delivered SCORES BABY A Heart Rate 1 min: >100 bpm Resp Effort 1 min: Good Cry Reflex Irritability 1 min: Cough or Sneeze or Pulls Away Muscle Tone 1 min: Some Flexion of Extremities Color 1 min: Blue/Pale Resuscitation Effort 1 min: Tactile Stimulation SCORE 1 MIN: 7 Heart Rate 5 min: >100 bpm Resp Effort 5 min: Good Cry Reflex Irritability 5 min: Cough or Sneeze or Pulls Away Muscle Tone 5 min: Active Motion Color 5 min: Body Hoot Owl, Extremities Blue Resuscitation Effort 5 min: Tactile Stimulation SCORE 5 MIN: 9 INFANT INFORMATION BABY A Gestational Age at Delivery: 40.5 Gestational Status: Full Term- 39- 40.6 Weeks Outcome : Liveborn Condition : Stable Sex: Male IDENTIFICATION BABY A Verification Date/Time: 10/26/2016 15:28 ID Band Number: [id number] Mother's Name Verified: Yes Infant RN Verifying : Arash Valentin, RN/ AJana Bryant, RN WEIGHT/LENGTH BABY A Birthweight (gm): 3500 Infant Weight (lb): 7 Weight (oz): 11 Length (in): 20.00 Infant Length (cm): 50.80 CORD INFORMATION BABY A No. Cord Vessels: 3 Nuchal Cord : N/A Cord Blood Taken: Yes-For Eval (Mom's Blood Type - or O+) Suction: Mouth ASSESSMENT BABY A Infant Complications: None Physical Findings at Delivery: Within Normal Limits Infant Respirations: Appears Normal Skin to Skin: Yes Skin to Skin Time (min): 30 Infant Care By: Livan Roberts RN Transferred To: Remains with Mother BABY B INFORMATION : N/A SIGNATURES Signature: with User ID: [email or web address]
== END 2016-10-28 15:00 | disposition home or self-care (01) | DRG 775 ==
LOC: LC 10:56 → LR 11:35 → 2S 17:00
PROVIDERS: ADMIT Student in an Organized Health Care Education/Training Program; ATTEND Student in an Organized Health Care Education/Training Program
PROC: 10E0XZZ Delivery of Products of Conception, External Approach (ICD-10-PCS; principal; 2016-10-26)
DX: O99.334 Smoking (tobacco) complicating childbirth (principal); F17.210 Nicotine dependence, cigarettes, uncomplicated; Z3A.40 40 weeks gestation of pregnancy; Z37.0 Single live birth
CPT/HCPCS: 36415; 80307; 81005; 85025; 85027; 86592; 86850; 86900; 86901; J2370; J2590; J3010; J3490

== ENCOUNTER 2017-06-15 01:06 | Emergency (ER) | payer MEDICAID ==
[2017-06-15 01:13] VITALS: BP 106/59
[2017-06-15] MEDS ORDERED: TETRACAINE HCL 0.5% OPH SOLN 2 ML OS ONE (01:17)
[2017-06-15] MEDS ORDERED: POLYMYXIN B SULFATE/TMP OPH SOLN (10 ML/ER DISP) OS PRN (02:13)
--- NOTE | 2017-06-15 02:13 | ER Document Report ---
ED General - General Chief Complaint: Eye Problem Stated Complaint: LT EYE IRRITATION Time Seen by Provider: 06/15/17 01:42 Notes: Patient is a 31 year old female who presents with severe left eye pain that woke her from sleep. Patient states that she woke up and felt like something had scratched her left eye. She attempted to Place Visine drops in her eye but this only worsen the pain. She describes as severe, burning, stinging pain to her left eye. She notes associated blurring of vision and photophobia. She denies any history of similar symptoms in the past. She came directly to the emergency department given the hour of the night and has therefore been unable to see her eye doctor regarding this concern. She does not use contacts. Her symptoms been unchanged since onset. She denies any trauma to the eye, drainage from the eye, facial swelling or fever. TRAVEL OUTSIDE OF THE [place] IN LAST 30 DAYS: No - Related Data Allergies/Adverse Reactions: No Known Allergies Allergy (Verified 10/25/16 17:38) Past Medical History - General Information source: Patient - Social History Smoking Status: Never Smoker Frequency of alcohol use: None Drug Abuse: None Lives with: Spouse/Significant other Family History: Reviewed & Not Pertinent Renal/ Medical History: Denies: Hx Peritoneal Dialysis Past Surgical History: Reports: Hx Oral Surgery - Immunizations Immunizations up to date: Yes Hx Diphtheria, Pertussis, Tetanus Vaccination: Yes Review of Systems - Review of Systems Notes: Constitutional: Negative for fever. HENT: Negative for sore throat. Eyes: Positive for left eye pain and blurring of vision in the left eye Cardiovascular: Negative for chest pain. Respiratory: Negative for shortness of breath. Gastrointestinal: Negative for abdominal pain, vomiting or diarrhea. Genitourinary: Negative for dysuria. Musculoskeletal: Negative for back pain. Skin: Negative for rash. Neurological: Negative for headaches, weakness or numbness. 10 point ROS negative except as marked above and in HPI. Physical Exam - Vital signs Vitals: Temp Pulse Resp BP Pulse Ox 97.8 F 68 18 106/59 L 100 06/15/17 01:12 06/15/17 01:12 06/15/17 01:12 06/15/17 01:12 06/15/17 01:12 Interpretation: Normal Notes: PHYSICAL EXAMINATION: GENERAL: Appears quite uncomfortable but in no acute distress HEAD: Atraumatic, normocephalic. EYES: Pupils equal round and reactive to light, extraocular movements intact, scleral injection on the left. Fluorescein staining performed to the left eye. There is a central corneal abrasion starting at approximately the mid cornea and extending towards the nose. No evidence of an ulceration. Eyelid was flipped, and no visualization of a foreign body. ENT: nares patent, oropharynx clear without exudates. Moist mucous membranes. NECK: Normal range of motion, supple without lymphadenopathy LUNGS: Breath sounds clear to auscultation bilaterally and equal. No wheezes rales or rhonchi. HEART: Regular rate and rhythm without murmurs ABDOMEN: Soft, nontender, normoactive bowel sounds. No guarding, no rebound. No masses appreciated. EXTREMITIES: Normal range of motion, no pitting or edema. No cyanosis. NEUROLOGICAL: No focal neurological deficits. Moves all extremities spontaneously and on command. PSYCH: Normal mood, normal affect. SKIN: Warm, Dry, normal turgor, no rashes or lesions noted. Course - Re-evaluation Re-evalutation: 06/15/17 02:11 Patient presents with a left corneal abrasion seen under fluorescein staining. There is no evidence of retained foreign body after the lid was flipped on the left. Extraocular motions intact. Pupillary reflex within acceptable limits. No evidence of ciliary flare on anterior chamber examination. Patient has been started on Polytrim drops, up though her optometry follow-up has been recommended within the next 24-48 hours. At this time will discharge with return precautions and follow-up recommendations. Verbal discharge instructions given a the bedside and opportunity for questions given. Medication warnings reviewed. Patient is in agreement with this plan and has verbalized understanding of return precautions and the need for eye care follow- up in the next 24-72 hours. - Vital Signs Vital signs: Temp Pulse Resp BP Pulse Ox 97.8 F 68 18 106/59 L 100 06/15/17 01:12 06/15/17 01:12 06/15/17 01:12 06/15/17 01:12 06/15/17 01:12 Discharge - Discharge Clinical Impression: Left corneal abrasion Qualifiers: Encounter type: initial encounter Qualified Code(s): S05.02XA - Injury of conjunctiva and corneal abrasion without foreign body, left eye, initial encounter Condition: Good Disposition: HOME, SELF-CARE Additional Instructions: You have a corneal abrasion. This should improve in the next several days. You should apply the eye drops to the affected eye every 3 days for the next 5 days. Follow-up with your eye doctor at your earliest ability. Return if you have decreased vision, worsening pain, increased drainage from the eye, you notice redness or puffiness around the eye, you develop a fever greater than 101 F, or you have any other symptoms that are concerning to you.
== END 2017-06-15 03:16 | disposition home or self-care (01) ==
LOC: ER 01:06
DX: S05.02XA Injury of conjunctiva and corneal abrasion without foreign body, left eye, initial encounter (principal); X58.XXXA Exposure to other specified factors, initial encounter
CPT/HCPCS: 99283; J3490

== ENCOUNTER 2017-11-29 19:43 | Emergency (ER) | payer MEDICAID ==
[2017-11-29 19:50] VITALS: BP 101/58
--- NOTE | 2017-11-29 20:09 | ER Document Report ---
ED Eye Complaint - General Chief Complaint: Eye Pain Stated Complaint: EYE PAIN Time Seen by Provider: 11/29/17 20:03 Notes: Patient is a 32-year-old female that comes to the emergency department for chief complaint of 2 days of eye irritation, she states that she has an irritated feeling like something is stuck in her eye that she needs to pull out. This is in both eyes equally. She denies visual loss or blurriness, she denies discharge, she does admit to very irritated nasal passages with very runny nose. She denies fever, nausea or vomiting, ear pain, sinus pain. She does not wear visual correction including contacts or glasses. She is 36 weeks . TRAVEL OUTSIDE OF THE [place] IN LAST 30 DAYS: No - Related Data Allergies/Adverse Reactions: No Known Allergies Allergy (Verified 10/25/16 17:38) Past Medical History - General Information source: Patient - Social History Smoking Status: Never Smoker Frequency of alcohol use: None Drug Abuse: None Lives with: Family Family History: Reviewed & Not Pertinent - Medical History Medical History: Negative Renal/ Medical History: Denies: Hx Peritoneal Dialysis Past Surgical History: Reports: Hx Oral Surgery - Immunizations Immunizations up to date: Yes Hx Diphtheria, Pertussis, Tetanus Vaccination: Yes Review of Systems - Review of Systems Constitutional: No symptoms reported EENT: See HPI Cardiovascular: No symptoms reported Respiratory: No symptoms reported Gastrointestinal: No symptoms reported Genitourinary: No symptoms reported Female Genitourinary: No symptoms reported Musculoskeletal: No symptoms reported Skin: No symptoms reported Hematologic/Lymphatic: No symptoms reported Neurological/Psychological: No symptoms reported Physical Exam - Vital signs Vitals: Temp Pulse Resp BP Pulse Ox 98.0 F 95 20 101/58 L 97 11/29/17 19:48 11/29/17 19:48 11/29/17 19:48 11/29/17 19:48 11/29/17 19:48 - Notes Notes: GENERAL: Alert, interacts well. No acute distress. HEAD: Normocephalic, atraumatic. EYES: Pupils equal, round, and reactive to light. Extraocular movements intact. Sclerae erythematous bilaterally with only mild injection. No discharge. No superficial foreign body, no fluorescein uptake, negative Antoine sign. ENT: Oral mucosa moist, tongue midline. [Nares patent, no nasal septal hematoma , TM's intact.] NECK: Full range of motion. Supple. Trachea midline. LUNGS: Clear to auscultation bilaterally, no wheezes, rales, or rhonchi. No respiratory distress. HEART: Regular rate and rhythm. No murmur ABDOMEN: Soft, non-tender. Non-distended. Bowel sounds present in all 4 quadrants. EXTREMITIES: Moves all 4 extremities spontaneously. No edema, normal radial and dorsalis pedis pulses bilaterally. No cyanosis. BACK: no cervical, thoracic, lumbar midline tenderness. No saddle anesthesia, normal distal neurovascular exam. NEUROLOGICAL: Alert and oriented x3. Normal speech. [cranial nerves II through XII grossly intact]. PSYCH: Normal affect, normal mood. SKIN: Warm, dry, normal turgor. No rashes or lesions noted. Course - Re-evaluation Re-evalutation: Patient with mild erythema of both sclera, no discharge, very congested nasal passages. No fluorescein uptake, normal pupils, no visual loss, no signs of distress on exam. Unremarkable physical examination otherwise. Suspect allergic component, because of conjunctivitis adding erythromycin ointment to prevent superinfection, discussed treatment recommendations, follow-up with ophthalmology, and return precautions. Patient states satisfaction and agreement. - Vital Signs Vital signs: Temp Pulse Resp BP Pulse Ox 98.0 F 95 20 101/58 L 97 11/29/17 19:48 11/29/17 19:48 11/29/17 19:48 11/29/17 19:48 11/29/17 19:48 Discharge - Discharge Clinical Impression: Rhinorrhea Conjunctivitis Qualifiers: Conjunctivitis type: acute Acute conjunctivitis type: unspecified Laterality: bilateral Qualified Code(s): H10.33 - Unspecified acute conjunctivitis, bilateral Condition: Stable Disposition: HOME, SELF-CARE Additional Instructions: Your examination is consistent with conjunctivitis, probably allergic. Take the antihistamine prescription and the Flonase as prescribed. You have been prescribed topical antibiotic which is soothing and should help prevent secondary infection. Follow-up closely with your primary provider. If symptoms continue follow-up with the ophthalmology referral. Return if you worsen including swelling of the eyes, loss of vision, fever, or any other concerning or worsening symptoms. Prescriptions: Erythromycin Base [Erythromycin Oph 1 Gm Oint Ud] 1 applic OD ASDIR PRN #1 tube PRN Reason: Fluticasone Propionate [Flonase Nasal Latexo 50 Mcg/Latexo 16 gm] 2 sprays NASL Q12 #1 inhaler Loratadine [Claritin 10 mg Tablet] 10 mg PO DAILY #30 tablet Referrals: JOE UNDERWOOD MD [Primary Care Provider] - Follow up as needed
[2017-11-29] MEDS ORDERED: DIPHENHYDRAMINE HCL 25 MG CAPSULE PO ONE (20:29)
== END 2017-11-29 20:45 | disposition home or self-care (01) ==
LOC: ER 19:43
DX: O26.893 Other specified pregnancy related conditions, third trimester (principal); H10.33 Unspecified acute conjunctivitis, bilateral; J34.89 Other specified disorders of nose and nasal sinuses; H57.13 Ocular pain, bilateral; R09.89 Other specified symptoms and signs involving the circulatory and respiratory systems; Z3A.36 36 weeks gestation of pregnancy
CPT/HCPCS: 99283; J3490

== ENCOUNTER 2017-12-20 08:32 | Inpatient (IN) | payer MEDICAID ==
[2017-12-20] MEDS ORDERED: OXYTOCIN 10 UNIT/ML VIAL ONE ×2 (08:39→08:40)
[2017-12-20] MEDS ORDERED: MISOPROSTOL 0.2 MG TABLET ONE (08:39)
[2017-12-20] MEDS ORDERED: OXYTOCIN/NORMAL SALINE 20 UNIT/1,000 ML RTUINJ ONE (08:39)
[2017-12-20] MEDS ORDERED: LIDOCAINE 1% INJ-PF (10 MG/ML) 30 ML SDV ONE (08:39)
[2017-12-20] MEDS ORDERED: METHYLERGONOVINE MALEATE INJ/PF 0.2 MG/1 ML AMPULE ONE (09:10)
--- NOTE | 2017-12-20 09:13 | Admission Physical ---
Datetime Report Generated by CPN: 12/20/2017 09:13 CURRENT ADMISSION Chief Complaint: Uterine Contractions Indication for Induction: Not Applicable Admit Impression : Term, Intrauterine Admit Plan: Admit to Unit; Initiate Labor Protocol ALLERGIES Medication Allergies: No Known Allergies (10/25/2016) PHYSICAL EXAM General: Normal HEENT: Normal Neurologic: Normal Thyroid: Normal Heart: Normal Lungs: Normal Breast: Normal Back: Normal Abdomen: Normal Genitourinary Exam: Normal Extremities: Normal DTRs: Normal Pelvic Type: Adequate VAGINAL EXAM Dilatation: 10 Effacement: 100 Station: 2 Contraction Comments: 3-4 MEMBRANES Pooling: Negative Membranes: Intact Amniotic Fluid Color: Clear FETUS A Monitoring: External US FHR- Baseline: 130 Variability: Moderate 6-25bpm Accelerations: 15X15 Decelerations: None INFORMED CONSENT Signature: with User ID: [email or web address]
[2017-12-20] MEDS ORDERED: DIPHENHYDRAMINE HCL 25 MG CAPSULE PO PRN (09:19)
[2017-12-20] MEDS ORDERED: MEASLES,MUMPS&RUBELLA VACC/PF 0.5 ML VIAL SUBCUT PRN (09:19)
[2017-12-20] MEDS ORDERED: PROMETHAZINE HCL 25 MG TABLET PO PRN (09:19)
[2017-12-20] MEDS ORDERED: PSEUDOEPHEDRINE HCL 30 MG TABLET PO PRN (09:19)
[2017-12-20] MEDS ORDERED: PROMETHAZINE HCL INJ 25 MG/1 ML VIAL IV PRN (09:19)
[2017-12-20] MEDS ORDERED: OXYTOCIN/NORMAL SALINE 20 UNIT/1,000 ML RTUINJ IV PRN (09:19)
[2017-12-20] MEDS ORDERED: ACETAMINOPHEN 650 MG SUPP.RECT PR PRN (09:19)
[2017-12-20] MEDS ORDERED: DIBUCAINE 1% OINTMENT 28 GM TP PRN (09:19)
[2017-12-20] MEDS ORDERED: MAGNESIUM HYDROXIDE SUSP 30 ML UDCUP PO PRN (09:19)
[2017-12-20] MEDS ORDERED: NA PHOS,M-B/NA PHOS,DI-BA (ADULT) 133 ML ENEMA PR PRN (09:19)
[2017-12-20] MEDS ORDERED: ZOLPIDEM TARTRATE 5 MG TABLET PO PRN (09:19)
[2017-12-20] MEDS ORDERED: ACETAMINOPHEN WITH CODEINE #3 TABLET PO PRN ×2 (09:19)
[2017-12-20] MEDS ORDERED: PROMETHAZINE HCL 25 MG SUPP.RECT PR PRN (09:19)
[2017-12-20] MEDS ORDERED: GLYCERIN/WITCH HAZEL LEAF 1 EACH MED..PAD TP PRN (09:19)
[2017-12-20] MEDS ORDERED: BENZOCAINE/MENTHOL AEROSOL SPRAY 56 ML TOP PRN (09:19)
[2017-12-20] MEDS ORDERED: DIPH/PERTUSS(ACELL)/TETANUS VAC/PF 0.5 ML SYR (>=10YO) IM PRN (09:19)
[2017-12-20] MEDS ORDERED: ERYTHROMYCIN 0.5% OPH OINTMENT 3.5 GM TUBE OD PRN (09:20)
[2017-12-20] MEDS ORDERED: ACETAMINOPHEN WITH CODEINE #3 TABLET ONE (09:28)
[2017-12-20] MEDS ORDERED: DOCUSATE SODIUM 100 MG CAPSULE PO SCH (10:00)
[2017-12-20] MEDS ORDERED: (PENDING PHARMACY ID) (Prenatal No122/Iron/Folic Acid [Prenatal Multi Tablet] 1 EACH) PO SCH (10:00)
--- NOTE | 2017-12-20 12:04 | Delivery Summary ---
Del Sum A-C Datetime Report Generated by CPN: 12/20/2017 12:04 DELIVERY PERSONNEL DELIVERY PERSONNEL: [id number] Delivery Doctor:: Jessy Aggarwal MD Anesthesiologist:: None FRIED CAKE MAKER:: None Labor and Delivery Nurse:: Jessa Guzmán RNcrushing machine operator Nurse:: ANITA Jarrett Real Estate Marketing Coordinator/SURVIVAL EQUIPMENT REPAIRER: Dorothymichaela Todda, ST MATERNAL INFORMATION Delivery Anesthesia: None Medications After Delivery: Pitocin Drip 20 Units/1000ml NSS Estimated Blood Loss (ml): 200 Maternal Complications: None LABOR SUMMARY EDC: 12/25/2017 00:00 No. Babies in Womb: 1 Attempted: No Labor Anesthesia: None LABOR INFORMATION Reason for Induction: Not Applicable Onset of Labor: 12/20/2017 00:00 Complete Dilatation: 12/20/2017 08:40 Oxytocin: N/A Group B Beta Strep: Negative Steroids Given: None Reason Steroids Not Administered: Not Applicable MEMBRANES Membranes Rupture Method: Artificial Amniotic Fluid Color: Clear Amniotic Fluid Amount: Small Amniotic Fluid Odor: Normal STAGES OF LABOR Stage 1 hr: 8 Stage 1 min: 40 Stage 2 hr: 0 Stage 2 min: 26 Stage 3 hr: 0 Stage 3 min: 2 Total Time in Labor hr: 9 Total Time in Labor min: 8 VAGINAL DELIVERY Episiotomy: None Laceration #1: None Laceration Extension #1: N/A Laceration Repair: Not Applicable Sponge Count Correct: N/A Sharps Count Correct: N/A CSECTION DELIVERY Primary Indication: N/A Secondary Indication: N/A CSection Incidence: N/A Labor: N/A Elective: N/A CSection Incision: N/A BABY A INFORMATION Infant Delivery Date/Time: 12/20/2017 09:06 Method of Delivery: Vaginal Born in Route : No : N/A Forceps: N/A Vacuum Extraction: N/A Shoulder Dystocia : No PRESENTATION/POSITION BABY A Presentation: Cephalic Cephalic Presentation: Vertex Vertex Position: Right Occipital Anterior Breech Presentation: N/A PLACENTA INFORMATION BABY A Placenta Delivery Time : 12/20/2017 09:08 Placenta Method of Delivery: Spontaneous Placenta Status: Delivered SCORES BABY A Heart Rate 1 min: >100 bpm Resp Effort 1 min: Good Cry Reflex Irritability 1 min: Cough or Sneeze or Pulls Away Muscle Tone 1 min: Active Motion Color 1 min: Body [place], Extremities Blue Resuscitation Effort 1 min: Tactile Stimulation SCORE 1 MIN: 9 Heart Rate 5 min: >100 bpm Resp Effort 5 min: Good Cry Reflex Irritability 5 min: Cough or Sneeze or Pulls Away Muscle Tone 5 min: Active Motion Color 5 min: Body [place], Extremities Blue Resuscitation Effort 5 min: N/A SCORE 5 MIN: 9 INFANT INFORMATION BABY A Gestational Age at Delivery: 38.6 Gestational Status: Early Term- 37- 38.6 Weeks Outcome : Liveborn Infant Condition : Stable Sex: Male IDENTIFICATION BABY A Infant Verification Date/Time: 12/20/2017 09:27 ID Band Number: [id number] Mother's Name Verified: Yes RN Verifying Infant: Roberta Guzmán, RN/ BJana Ferris, RN WEIGHT/LENGTH BABY A Birthweight (gm): 2900 Infant Weight (lb): 6 Infant Weight (oz): 6 Infant Length (in): 19.00 Infant Length (cm): 48.26 CORD INFORMATION BABY A No. Cord Vessels: 3 Nuchal Cord : N/A Cord Blood Taken: N/A Suction: Mouth; Nose ASSESSMENT BABY A Complications: None Physical Findings at Delivery: Within Normal Limits Infant Respirations: Appears Normal Skin to Skin: Yes Skin to Skin Time (min): 10 Hoop Driving Machine Operator Helper/ALS Called : No Care By: Denise Ferris RN Transferred To: Nursery BABY B INFORMATION : N/A SIGNATURES Signature: with User ID: [email or web address]
[2017-12-20] MEDS ORDERED: RINGERS SOLUTION,LACTATED 1,000 ML IV ONE (12:48)
[2017-12-20 13:31] LABS: ABSOLUTE BASOPHILS # (AUTO) 0.1 10^3/uL (0.0-0.2); ABSOLUTE EOSINOPHILS # (AUTO) 0.1 10^3/uL (0.0-0.6); ABSOLUTE LYMPHOCYTES (AUTO) 1.6 10^3/uL (0.5-4.7); ABSOLUTE MONOCYTES (AUTO) 0.6 10^3/uL (0.1-1.4); ABSOLUTE NEUT (AUTO) 8.6 10^3/uL (1.7-8.2); BASOPHILS % (AUTO) 0.8 % (0-2); EOSINOPHILS % (AUTO) 0.8 % (0-6); HEMATOCRIT 39.5 % (36.0-47.0); HEMOGLOBIN 13.2 g/dL (12.0-15.5); LYMPHOCYTES % (AUTO) 14.6 % (13-45); MEAN CORPUSCULAR HEMOGLOBIN 28.5 pg (27.0-33.4); MEAN CORPUSCULAR HGB CONC 33.5 g/dL (32.0-36.0); MEAN CORPUSCULAR VOLUME 85 fl (80-97); MONOCYTES % (AUTO) 5.3 % (3-13); PLATELET COUNT 172 10^3/uL (150-450); RED BLOOD COUNT 4.64 10^6/uL (3.72-5.28); RED CELL DISTRIBUTION WIDTH 14.3 % (11.5-14.0); SEGMENTED NEUTROPHILS % (AUTO) 78.5 % (42-78); TOTAL CELLS COUNTED % (AUTO) 100 %
[2017-12-20] MEDS: IBUPROFEN 800 MG TABLET PO SCH ×2 (13:56→21:32)
[2017-12-20] MEDS: FERROUS SULFATE 325 MG TABLET PO SCH ×2 (13:59→17:40)
[2017-12-20] MEDS: PRENATAL VITAMIN W DHA CAPSULE PO SCH (13:59)
[2017-12-20] MEDS: FAMOTIDINE 20 MG TABLET PO SCH ×2 (13:59→21:30)
[2017-12-20] MEDS: SENNOSIDES/DOCUSATE 8.6-50 MG 1 EACH TABLET PO SCH (13:59)
[2017-12-20] MEDS: LORATADINE 10 MG TABLET PO SCH (14:00)
[2017-12-20] MEDS: DOCUSATE SODIUM 100 MG CAPSULE PO SCH ×2 (14:00→17:47)
[2017-12-20] MEDS ORDERED: IBUPROFEN 800 MG TABLET PO SCH (14:00)
--- NOTE | 2017-12-20 15:42 | PDOC DELIVERY SUMMARY ---
Delivery Summary - Maternal Hx : VIIII Hx Para: V Hx # Term Pregnancies: 5 Hx # Pregnancies: 0 Hx Total # of Abortions (Sponateous & Elective): 3 Number of Living Children: 5 MATA: 12/21/17 Gestational Age: 39.6 Ruptured Membranes: AROM Fluids: Clear - Delivery Labor: Precipitous-Less Than 3 Hours Presentation: Vertex Heart Rate Monitoring: Externally Support Person Present: Yes Location: LD Placenta Description: normal appearing Number of Vessels (Cord): 3 Nuchal Cord: No Delivery of Placenta Date: 12/20/17 Delivery Quantitative Blood Loss (QBL): 300 - Medications Type of Anesthesia:: Other - none - Delivery Personnel MD: GEORGIA AVILA
[2017-12-20] MEDS: FLUTICASONE NASAL SPRAY 50 MCG/SPRY 120 SPRAY/16 GM NASL SCH (21:33)
[2017-12-21] MEDS: IBUPROFEN 800 MG TABLET PO SCH ×3 (05:55→21:06)
[2017-12-21 08:08] LABS: HEMATOCRIT 31.5 % (36.0-47.0); MEAN CORPUSCULAR HEMOGLOBIN 29.8 pg (27.0-33.4); MEAN CORPUSCULAR VOLUME 85 fl (80-97); PLATELET COUNT 157 10^3/uL (150-450); RED CELL DISTRIBUTION WIDTH 13.8 % (11.5-14.0); WHITE BLOOD COUNT 9.4 10^3/uL (4.0-10.5)
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
[2017-12-21] MEDS: FLUTICASONE NASAL SPRAY 50 MCG/SPRY 120 SPRAY/16 GM NASL SCH (10:29)
[2017-12-21] MEDS: LORATADINE 10 MG TABLET PO SCH (10:29)
[2017-12-21] MEDS: DOCUSATE SODIUM 100 MG CAPSULE PO SCH ×2 (10:30→18:36)
[2017-12-21] MEDS: SENNOSIDES/DOCUSATE 8.6-50 MG 1 EACH TABLET PO SCH (10:30)
[2017-12-21] MEDS: FAMOTIDINE 20 MG TABLET PO SCH ×2 (10:31→21:06)
[2017-12-21] MEDS: FERROUS SULFATE 325 MG TABLET PO SCH ×2 (10:31→18:36)
[2017-12-21] MEDS: PRENATAL VITAMIN W DHA CAPSULE PO SCH (10:33)
[2017-12-22] MEDS: IBUPROFEN 800 MG TABLET PO SCH ×2 (05:40→13:20)
[2017-12-22] MEDS: FLUTICASONE NASAL SPRAY 50 MCG/SPRY 120 SPRAY/16 GM NASL SCH ×2 (08:21→09:38)
[2017-12-22 08:22] VITALS: BP 105/53
[2017-12-22] MEDS: LORATADINE 10 MG TABLET PO SCH (09:38)
[2017-12-22] MEDS: DOCUSATE SODIUM 100 MG CAPSULE PO SCH (10:13)
[2017-12-22] MEDS: FERROUS SULFATE 325 MG TABLET PO SCH (10:13)
[2017-12-22] MEDS: FAMOTIDINE 20 MG TABLET PO SCH (10:13)
[2017-12-22] MEDS: PRENATAL VITAMIN W DHA CAPSULE PO SCH (10:13)
[2017-12-22] MEDS: SENNOSIDES/DOCUSATE 8.6-50 MG 1 EACH TABLET PO SCH (10:13)
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
== END 2017-12-22 13:25 | disposition home or self-care (01) | DRG 807 ==
LOC: LC 08:32 → LR 08:40 → 2S 12:15
PROVIDERS: ADMIT Obstetrics & Gynecology; ATTEND Obstetrics & Gynecology
PROC: 10E0XZZ Delivery of Products of Conception, External Approach (ICD-10-PCS; principal; 2017-12-20)
DX: O75.89 Other specified complications of labor and delivery (principal); Z37.0 Single live birth; O62.3 Precipitate labor; O99.324 Drug use complicating childbirth; F19.90 Other psychoactive substance use, unspecified, uncomplicated; O99.344 Other mental disorders complicating childbirth; F32.9 Major depressive disorder, single episode, unspecified; O99.334 Smoking (tobacco) complicating childbirth; F17.210 Nicotine dependence, cigarettes, uncomplicated; Z3A.39 39 weeks gestation of pregnancy
CPT/HCPCS: 36415; 85025; 85027; 86592; 86850; 86900; 86901; J2210; J2590; J3490

== ENCOUNTER 2018-01-25 13:31 | Emergency (ER) | payer MEDICAID ==
[2018-01-25] MEDS ORDERED: IBUPROFEN 600 MG TABLET PO ONE (14:24)
[2018-01-25] MEDS ORDERED: PENICILLIN V POTASSIUM 500 MG TABLET PO ONE (14:25)
--- NOTE | 2018-01-25 14:28 | ER Document Report ---
ED Oral Problem - General Chief Complaint: Toothache Stated Complaint: TOOTH PAIN Time Seen by Provider: 01/25/18 14:03 Mode of Arrival: Ambulatory Information source: Patient Notes: 32-year-old female presented to ED for complaint of dental pain to tooth #19 and 16. She states that sometimes 19 hurts worse and sometimes 16 hurts worse. Both of them have cavities with part of the tooth missing. Patient is alert and oriented respirations regular and unlabored speaking in full sentences and walks with a even steady gait. Does not have any facial or jaw swelling. TRAVEL OUTSIDE OF THE [place] IN LAST 30 DAYS: No - HPI Patient complains to provider of: Toothache Onset: Other - About a year Onset: Gradual Quality of pain: Sharp, Throbbing Severity: Severe Pain Level: 5 Associated symptoms: Toothache Worsened by: Nothing Similar symptoms previously: Yes Recently seen / treated by doctor/dentist: No - Related Data Allergies/Adverse Reactions: No Known Allergies Allergy (Verified 10/25/16 17:38) Past Medical History - General Information source: Patient - Social History Smoking Status: Current Every Day Smoker Cigarette use (# per day): Yes - Half pack a day Chew tobacco use (# tins/day): No Smoking Education Provided: Yes - 4 minutes Frequency of alcohol use: None Drug Abuse: None Lives with: Family Family History: Reviewed & Not Pertinent Patient has suicidal ideation: No Patient has homicidal ideation: No - Past Medical History Cardiac Medical History: Reports: None Pulmonary Medical History: Reports: None EENT Medical History: Reports: None Neurological Medical History: Reports: None Endocrine Medical History: Reports: None Renal/ Medical History: Reports: None Malignancy Medical History: Reports: None GI Medical History: Reports: None Musculoskeletal Medical History: Reports None Skin Medical History: Reports None Psychiatric Medical History: Reports: None Traumatic Medical History: Reports: None Infectious Medical History: Reports: None Past Surgical History: Reports: Hx Oral Surgery, Other - Abscess to the neck that needed to go to surgery - Immunizations Immunizations up to date: Yes Hx Diphtheria, Pertussis, Tetanus Vaccination: Yes Review of Systems - Review of Systems Constitutional: No symptoms reported EENT: Mouth pain, Dental problem Cardiovascular: No symptoms reported Respiratory: No symptoms reported Gastrointestinal: No symptoms reported Genitourinary: No symptoms reported Female Genitourinary: No symptoms reported Musculoskeletal: No symptoms reported Skin: No symptoms reported Hematologic/Lymphatic: No symptoms reported Neurological/Psychological: No symptoms reported Physical Exam - Vital signs Vitals: Temp Pulse Resp BP Pulse Ox 98.3 F 68 14 94/65 L 96 01/25/18 13:53 01/25/18 13:53 01/25/18 13:53 01/25/18 13:53 01/25/18 13:53 Interpretation: Normal - General General appearance: Appears well, Alert - HEENT Head: Normocephalic, Atraumatic Eyes: Normal Pupils: PERRL Mouth/Lips: Caries Teeth diagram: 1 - Large cavity with minimal redness surrounding the tooth 2 - Large cavity with most of the tooth missing tooth #17 and 18 are missing Pharynx: Normal Neck: Normal - Respiratory Respiratory status: No respiratory distress Chest status: Nontender Breath sounds: Normal Chest palpation: Normal - Cardiovascular Rhythm: Regular Heart sounds: Normal auscultation Murmur: No - Abdominal Inspection: Normal Distension: No distension Bowel sounds: Normal Tenderness: Nontender Organomegaly: No organomegaly - Back Back: Normal, Nontender - Extremities General upper extremity: Normal inspection, Nontender, Normal color, Normal ROM , Normal temperature General lower extremity: Normal inspection, Nontender, Normal color, Normal ROM , Normal temperature, Normal weight bearing. No: Kary's sign - Neurological Neuro grossly intact: Yes Cognition: Normal Orientation: AAOx4 [place] Coma Scale Eye Opening: Spontaneous Brandie Coma Scale Verbal: Oriented Brandie Coma Scale Motor: Obeys Commands [place] Coma Scale Total: 15 Speech: Normal Motor strength normal: LUE, RUE, LLE, RLE Sensory: Normal - Psychological Associated symptoms: Normal affect, Normal mood - Skin Skin Temperature: Warm Skin Moisture: Dry Skin Color: Normal Course - Re-evaluation Re-evalutation: 01/25/18 14:43 Presentation is most consistent with likely an infected tooth. Airway is patent. Vitals within normal limits. Patient is able swallow without any difficulty. There is no significant facial swelling. No evidence of Jesse angina, apical abscess, or airway obstruction. Patient will be started on antibiotics. I've instructed to follow-up with dentistry as earliest ability for definitive management. At this time will discharge with return precautions and follow-up recommendations. Verbal discharge instructions given a the bedside and opportunity for questions given. Medication warnings reviewed. Patient is in agreement with this plan and has verbalized understanding of return precautions and the need for primary care follow-up in the next 24-72 hours. - Vital Signs Vital signs: Temp Pulse Resp BP Pulse Ox 98.3 F 68 14 94/65 L 96 01/25/18 13:53 01/25/18 13:53 01/25/18 13:53 01/25/18 13:53 01/25/18 13:53 Discharge - Discharge Clinical Impression: Pain due to dental caries Condition: Stable Disposition: HOME, SELF-CARE Additional Instructions: TOOTHACHE: Your pain is due to dental decay. The tooth must be repaired in order for you to feel better. You will, therefore, be referred to a dentist. We do not have dentists on the staff at [facility]. Severe swelling or drainage around a tooth usually means a dental abscess. This also requires evaluation and treatment by the dentist, but antibiotics may be prescribed while awaiting dental treatment. You should be rechecked immediately if you develop major swelling of the face, increasing pain, a lump in the jaw or gums, headache, difficulty swallowing, or fever. PENICILLIN V K: You have been given a prescription for Penicillin VK. Your physician has determined that this is the best antibiotic for your condition. Pen VK can be taken with meals, however more of the antibiotic gets into the bloodstream if it's taken on an empty stomach. Penicillin usually has no side effects. However, allergy to penicillins is common. If you have had an allergic reaction to any drug of the penicillin family, you should never take any other penicillin. Notify your doctor at once if you develop hives, itching, swelling, faintness, or shortness of breath. Ibuprofen Ibuprofen is an excellent, safe drug for pain control. In addition, it has potent antiinflammatory effects which are beneficial, especially in the treatment of injuries, arthritis, or tendonitis. It's best to take ibuprofen with food. Persons with ulcer disease or allergy to aspirin should notify their physician of this before taking ibuprofen. Take the medication exactly as prescribed. Don't take additional doses unless instructed to do so by your doctor. If you develop wheezing, shortness of breath, hives, faintness, stomach pain, vomiting, or dark black stools, return for re-evaluation at once. FOLLOW-UP CARE: You have been referred for follow-up care to the dentists listed below. Call the dentists office for an appointment as you were instructed or within the next two days. If you experience worsening or a significant change in your symptoms, notify the physician immediately or return to the Emergency Department at any time for re-evaluation. [facility] [address] [place], [place] [facility] [address] [place] [address] [facility] [address] [facility] [address] [facility] [address] [facility] [email or web address] [address] [place] [address] Friday- 8:00am to 5:00 pm Will see patients from other [facility]. Charges based on income and family size and accepts Medicare, Medicaid, and Insurances Will pull molars [facility] [id number] Hours of Operation 8:00 am - 4:30 pm weekdays The following dental offices accept Medicaid: [facility] Dr. Chao Dr. Golden Dr. Black Dr. Thurman Db [place], John, and Rigoberto oral surgery Dr. Gonzalez ([place]) Dr. Willard ([place]) [facility] Drs. Butler and Andrea ([place]) Dr. Dixon ([place]) [facility] Dr. Bruner ([place]) Drs. Reza and ([place]) Medicaid Care Line Prescriptions: Ibuprofen [Motrin 600 mg Tablet] 600 mg PO Q8HP PRN #14 tablet PRN Reason: Penicillin V Potassium [Penicillin Vk 500 mg Tablet] 500 mg PO BID #20 tablet Forms: Smoking Cessation Education
[2018-01-25 14:44] VITALS: BP 110/68
== END 2018-01-25 14:43 | disposition home or self-care (01) ==
LOC: ER 13:31
DX: K02.9 Dental caries, unspecified (principal); F17.210 Nicotine dependence, cigarettes, uncomplicated
CPT/HCPCS: 99406; 99282; J3490 ×2

== ENCOUNTER 2018-06-10 10:18 | Emergency (ER) | payer SELFPAY ==
[2018-06-10 10:35] VITALS: BP 113/60
--- NOTE | 2018-06-10 11:54 | ER Document Report ---
ED General - General Chief Complaint: Pain All Over Stated Complaint: CHILLS Time Seen by Provider: 06/10/18 11:34 Primary Care Provider: DEWAYNE OLIVARES MD [ACTIVE STAFF] - Follow up in 3-5 days MNANY ACE MD [ACTIVE STAFF] - Follow up as needed Mode of Arrival: Ambulatory Information source: Patient, Relative TRAVEL OUTSIDE OF THE U.S. IN LAST 30 DAYS: No - HPI Notes: 32-year-old female presents the ED for multiple complaints of upper abdominal pain, myalgia, chills, fevers for the last 3 days. Patient states that she did "old meat" the other day, is unsure if she does have any food poisoning. Did not get a flu shot this year. Denies diarrhea, reports nausea. Patient's is at bedside with 2 children. Patient is insistent that something is wrong with her and she cannot really "explain it to you". Denies pa in,palpitations, shortness of breath, dyspnea, vomiting, diarrhea, hematuria,blurred vision, double vision, loss of vision, speech changes, LH, dizziness, syncope, headaches, wheezing, ST, URI, neck pain, weakness, bowel or bladder dysfunction, saddle anesthesia, numbness or tingling in bilateral upper or lower extremities equally, muscle paralysis, weakness in bilateral upper or lower extremities equally or rash. - Related Data Allergies/Adverse Reactions: No Known Allergies Allergy (Verified 06/10/18 10:20) Past Medical History - General Information source: Patient, Relative - Social History Smoking Status: Unknown if Ever Smoked Family History: Reviewed & Not Pertinent Renal/ Medical History: Denies: Hx Peritoneal Dialysis Past Surgical History: Reports: Hx Oral Surgery, Other - Abscess to the neck that needed to go to surgery - Immunizations Immunizations up to date: Yes Hx Diphtheria, Pertussis, Tetanus Vaccination: Yes Review of Systems - Review of Systems Constitutional: See HPI EENT: No symptoms reported Cardiovascular: No symptoms reported Respiratory: No symptoms reported Gastrointestinal: See HPI Genitourinary: No symptoms reported Female Genitourinary: No symptoms reported Musculoskeletal: No symptoms reported Skin: No symptoms reported Hematologic/Lymphatic: No symptoms reported Neurological/Psychological: No symptoms reported Physical Exam - Vital signs Vitals: Temp Pulse Resp BP Pulse Ox 98.7 F 80 16 113/60 100 06/10/18 10:33 06/10/18 10:33 06/10/18 10:33 06/10/18 10:33 06/10/18 10:33 - Notes Notes: PHYSICAL EXAMINATION: GENERAL: Well-appearing, well-nourished and in no acute distress. HEAD: Atraumatic, normocephalic. EYES: Pupils equal round and reactive to light, extraocular movements intact, conjunctiva are normal. ENT: Nares patent, oropharynx clear without exudates. Moist mucous membranes. NECK: Normal range of motion, supple without lymphadenopathy LUNGS: Breath sounds clear to auscultation bilaterally and equal. No wheezes rales or rhonchi. HEART: Regular rate and rhythm without murmurs ABDOMEN: Soft, nontender, nondistended abdomen. No guarding, no rebound. No masses appreciated. Female : deferred Musculoskeletal: Normal range of motion, no pitting or edema. No cyanosis. NEUROLOGICAL: Cranial nerves grossly intact. Normal speech, normal gait. Normal sensory, motor exams PSYCH: Appears to be anxious, normal mood, normal affect. SKIN: warm, Dry, normal turgor, no rashes or lesions noted. - Psychological Associated symptoms: Anxious, Restlessness Course - Re-evaluation Re-evalutation: 06/10/18 11:53 32-year-old female No distress although appears to be anxious presents for evaluation of abdominal pain. Strep, flu mono test negative. CBC negative for leukocytosis or anemia, CMP shows slight hypokalemia, 40 mEq of potassium chloride given orally. Ct abd/pelvis with iv contrast with pyelonephritis. Noted with pelvic acites and venous congestion. Patient given 1 g Rocephin IM because she did not want through the IV. Consulted with Dr. Rolando Ace, [employer] regarding CT abdomen pelvis read regarding gonadal vein and pelvic venous collaterals are prominent he said this is likely an incidental finding does not see anything acute about this will treat patient for pyelonephritis. We will culture her urine. Will send patient home with Macrobid 100 mg twice daily for 10 days. Follow-up with [employer] and primary care provider within the next 24-48 hours. After performing a Medical Screening Examination, I estimate there is LOW risk for ACUTE APPENDICITIS, BOWEL OBSTRUCTION, ACUTE CHOLECYSTITIS, PERFORATED DIVERTICULITIS, INCARCERATED HERNIA, PANCREATITIS, PELVIC INFLAMMATORY DISEASE, PERFORATED ULCER, ECTOPIC , or TUBO-OVARIAN ABSCE SS, thus I consider the discharge disposition reasonable. Also, there is no evidence or peritonitis, sepsis, or toxicity. I have reevaluated this patient multiple times and no significant life threatening changes are noted. The patient and I have discussed the diagnosis and risks, and we agree with discharging home with close follow-up with the understanding that symptoms and presentations can change. We also discussed returning to the Emergency Department immediately if new or worsening symptoms occur. We have discussed the symptoms which are most concerning (e.g., bloody stool, fever, changing or worsening pain, vomiting) that necessitate immediate return. - Vital Signs Vital signs: Temp Pulse Resp BP Pulse Ox 98.7 F 80 16 113/60 100 06/10/18 10:33 06/10/18 10:33 06/10/18 10:33 06/10/18 10:33 06/10/18 10:33 - Laboratory Result Diagrams: 06/10/18 12:11 06/10/18 12:11 Laboratory results interpreted by me: 06/10/18 06/10/18 06/10/18 12:11 12:11 12:11 Seg Neutrophils % 85.2 H Lymphocytes % 6.3 L Absolute Neutrophils 8.6 H Sodium 136.8 L Potassium 3.4 L Urine Protein 30 H Urine Ketones 80 H Urine Blood MODERATE H Urine Nitrite POSITIVE H Ur Leukocyte Esterase SMALL H Discharge - Discharge Clinical Impression: UTI (urinary tract infection), Dehydration, Hypokalemia, Pyelonephritis Condition: Stable Disposition: HOME, SELF-CARE Instructions: Nitrofurantoin ([facility]), Urinary Anesthetic Agent ([facility]), Intravenous (IV) Fluids ([facility]), Rocephin ([facility]), Pyelonephritis ([facility]) Additional Instructions: Your urine shows findings consistent with a urinary tract infection. Your CBC was negative for leukocytosis or anemia, urinalysis does show that you have a UTI as well as dehydration. rapid strep and flu were negative, mono test was negative. You were given 1 L of IV fluids. please take all the antibiotics as directed even if your symptoms have improved. Please follow-up with your primary care physician as needed. Return to emergency room if you develop fever >101F, persistent vomiting, become lethargic, have severe pain in your sides, or any other symptoms that are concerning to you. Prescriptions: Nitrofurantoin Macrocrystal [Macrodantin] 100 mg PO BID #14 capsule Phenazopyridine HCl [Pyridium] 200 mg PO TIDP PRN #9 tablet PRN Reason: Referrals: MANNY ACE MD [ACTIVE STAFF] - Follow up as needed DEWAYNE OLIVARES MD [ACTIVE STAFF] - Follow up in 3-5 days
[2018-06-10] MEDS ORDERED: NORMAL SALINE 1000 ML 1,000 ML IV PRN (11:56)
[2018-06-10 12:18] LABS: A TYPE INFLUENZA AG NEGATIVE (NEGATIVE); B INFLUENZA AG NEGATIVE (NEGATIVE)
[2018-06-10 12:25] LABS: ABSOLUTE LYMPHOCYTES (AUTO) 0.6 10^3/uL (0.5-4.7); ABSOLUTE MONOCYTES (AUTO) 0.8 10^3/uL (0.1-1.4); ABSOLUTE NEUT (AUTO) 8.6 10^3/uL (1.7-8.2); BASOPHILS % (AUTO) 0.4 % (0-2); EOSINOPHILS % (AUTO) 0.1 % (0-6); HEMATOCRIT 39.2 % (36.0-47.0); HEMOGLOBIN 13.8 g/dL (12.0-15.5); LYMPHOCYTES % (AUTO) 6.3 % (13-45); MEAN CORPUSCULAR HEMOGLOBIN 30.2 pg (27.0-33.4); MEAN CORPUSCULAR HGB CONC 35.1 g/dL (32.0-36.0); MEAN CORPUSCULAR VOLUME 86 fl (80-97); PLATELET COUNT 177 10^3/uL (150-450); RED BLOOD COUNT 4.56 10^6/uL (3.72-5.28); RED CELL DISTRIBUTION WIDTH 13.1 % (11.5-14.0); SEGMENTED NEUTROPHILS % (AUTO) 85.2 % (42-78); TOTAL CELLS COUNTED % (AUTO) 100 %; WHITE BLOOD COUNT 10.1 10^3/uL (4.0-10.5)
[2018-06-10 12:38] LABS: APPEARANCE,URINE SLIGHTLY-CLOUDY; BILIRUBIN,URINE NEGATIVE (NEGATIVE); COLOR,URINE YELLOW; GLUCOSE, URINE NEGATIVE (NEGATIVE); KETONES,URINE 80 mg/dL (NEGATIVE); LEUKOCYTE ESTERASE,URINE SMALL (NEGATIVE); NITRITE,URINE POSITIVE (NEGATIVE); PROTEIN,URINE 30 mg/dL (NEGATIVE); URINE SPECIFIC GRAVITY 1.018; UROBILINOGEN,URINE NEGATIVE mg/dL (<2.0)
[2018-06-10 12:55] LABS: ALANINE AMINOTRANSFERASE 39 U/L (9-52); ALBUMIN 4.2 g/dL (3.5-5.0); ALKALINE PHOSPHATASE 75 U/L (38-126); ANION GAP 11 (5-19); ASPARTATE AMINO TRANSFERASE 35 U/L (14-36); BILIRUBIN,DIRECT 0.4 mg/dL (0.0-0.4); BILIRUBIN,TOTAL 0.7 mg/dL (0.2-1.3); BLOOD UREA NITROGEN 12 mg/dL (7-20); CALCIUM 9.7 mg/dL (8.4-10.2); CARBON DIOXIDE 22 mmol/L (22-30); CHLORIDE 104 mmol/L (98-107); GLUCOSE 79 mg/dL (75-110); POTASSIUM 3.4 mmol/L (3.6-5.0); SODIUM 136.8 mmol/L (137-145); TOTAL PROTEIN 7.9 g/dL (6.3-8.2)
[2018-06-10 12:56] LABS: URINE AMPHETAMINES SCREEN NEGATIVE; URINE BARBITURATES SCREEN NEGATIVE; URINE BENZODIAZEPINES SCREEN NEGATIVE; URINE COCAINE SCREEN NEGATIVE; URINE MARIJUANA (THC) SCREEN UNCONFIRMED POSITIVE; URINE METHADONE SCREEN NEGATIVE; URINE PHENCYCLIDINE SCREEN NEGATIVE
[2018-06-10] MEDS ORDERED: POTASSIUM CHLORIDE 10 MEQ CAPSULE.ER PO ONE (13:37)
--- NOTE | 2018-06-10 13:58 | RADIOLOGY REPORT (SQ) ---
EXAM DESCRIPTION: CT ABD/PELVIS WITH IV ONLY COMPLETED DATE/TIME: 06/10/2018 1:29 pm REASON FOR STUDY: LUQ/RUQ abd pain with R flank pain COMPARISON: None. TECHNIQUE: CT scan of the abdomen and pelvis performed using helical scanning technique with dynamic intravenous contrast injection. No oral contrast. Images reviewed with lung, soft tissue, and bone windows. Reconstructed coronal and sagittal MPR images reviewed. Delayed images for evaluation of the urinary system also acquired. All images stored on PACS. All CT scanners at this facility use dose modulation, iterative reconstruction, and/or weight based d osing when appropriate to reduce radiation dose to as low as reasonably achievable (ALARA). [facility]: Dose Right [facility]: CareDose [facility]: Dose Right [facility]: Teradose 4D [facility]: Keldeal CONTRAST TYPE AND DOSE: contrast/concentration: Isovue 350.00 mg/ml; Total Contrast Delivered: 57.0 ml; Total Saline Delivered: 65.0 ml RENAL FUNCTION: Creatinine 0.58 RADIATION DOSE: CT Rad equipment meets quality standard of care and radiation dose reduction techniq ues were employed. CTDIvol: 4.8 - 4.9 mGy. DLP: 481 mGy-cm.. LIMITATIONS: None. FINDINGS: LOWER CHEST: No significant findings. No nodules or infiltrates. LIVER: Normal size. No masses. No dilated ducts. SPLEEN: Normal size. No focal lesions. PANCREAS: No masses. No significant calcifications. No adjacent inflammation or peripancreatic fluid collections. Pancreatic duct not dilated. GALLBLADDER: No identified stones by CT criteria. No inflammatory changes to suggest cholecystitis. ADRENAL GLANDS: No significant masses or asymmetry. RIGHT KIDNEY AND URETER: There are patchy areas of irregular hypoattenuation within the cortex most c onspicuous in the lower pole. No discrete masses. No significant calcifications. No hydronephros is or hydroureter. LEFT KIDNEY AND URETER: No solid masses. No significant calcifications. No hydronephrosis or hydr oureter. AORTA AND VESSELS: No aneurysm. No dissection. Renal arteries, SMA, celiac without stenosis. RETROPERITONEUM: No retroperitoneal adenopathy, hemorrhage or masses. BOWEL AND PERITONEAL CAVITY: No evidence of intestinal obstruction. No focal bowel wall thickening. Small amount of free fluid within the pelvis. APPENDIX: Normal. PELVIS: Small amount of free fluid within the pelvis. Prominent left gonadal vein and pelvic venous collaterals. Decompressed urinary bladder. Unremarkable ovaries. ABDOMINAL WALL: No masses. No hernias. BONES: No significant or acute findings. OTHER: No other significant finding. IMPRESSION: 1. Irregular patchy cortical hypoattenuation within the right kidney suggestive of pyel onephritis. Recommend correlation with urinalysis. No evidence of nephrolithiasis or hydronephrosis . 2. Small volume pelvic ascites, likely reactive. 3. Prominent left gonadal vein and pelvic venous collaterals. Recommend correlation for symptoms of pelvic venous insufficiency. TECHNICAL DOCUMENTATION: JOB ID: [id number] Quality ID # [id number]: Final reports with documentation of one or more dose reduction techniques (e.g., Au tomated exposure control, adjustment of the mA and/or kV according to patient size, use of iterative reconstruction technique) 2010 [employer]- All Rights Reserved Reading location - IP/workstation name: [email or web address]
[2018-06-10] MEDS ORDERED: CEFTRIAXONE INJ 1000 MG VIAL IV ONE (14:03)
[2018-06-10] MEDS ORDERED: CEFTRIAXONE INJ 1000 MG VIAL IM ONE (14:21)
[2018-06-10] MEDS ORDERED: LIDOCAINE 1% INJ-PF (10 MG/ML) 30 ML SDV INJ ONE (14:21)
== END 2018-06-10 14:45 | disposition home or self-care (01) ==
LOC: ER 10:18
DX: N39.0 Urinary tract infection, site not specified (principal); N12 Tubulo-interstitial nephritis, not specified as acute or chronic; E87.6 Hypokalemia; E86.0 Dehydration; R50.9 Fever, unspecified; M79.10 Myalgia, unspecified site; R10.10 Upper abdominal pain, unspecified
CPT/HCPCS: 99284; 96372; 36415; 87070; 87086; 87880; 85025; 81025; 87088; 86308; 80053; 81001; 87186; 80307; 87804; 74177; J3490; J0696; J7030

== ENCOUNTER 2019-04-23 12:21 | Emergency (ER) | payer MEDICAID ==
--- NOTE | 2019-04-23 13:28 | ER Document Report ---
ED Medical Screen (RME) - General Chief Complaint: Back Pain Stated Complaint: FALL//BACK PAIN Time Seen by Provider: 04/23/19 13:16 TRAVEL OUTSIDE OF THE [place] IN LAST 30 DAYS: No - HPI Notes: 04/23/19 13:21 Patient is a 33-year-old female who broke her lower back at the end of January presents complaining of acute pain status post injury. Patient states that she was lifting her son and she twisted feeling pain in her back and then fell to the ground. Patient states that she has had severe pain to her lower back and to her right posterior pelvis/buttock area that radiates down into her leg causi ng numbness and tingling. Patient did not lose consciousness. Patient states that she was told by her family doctor to come here for evaluation. She is scheduled for an orthopedic follow-up in a couple weeks. Patient states that she cannot feel her anal sphincter at this time, but I cannot fully assess in the wheel chair and pt is having movement issues. No fever, chest pain, shortness breath, abdominal pain. Reviewed with Dr. mcdonald--we will obtain an MRI. I have treated and performed a rapid initial assessment of this patient. A comprehensive ED assessment and evaluation of the patient, analysis of test results and completion of medical decision making process will be conducted by additional ED providers. PHYSICAL EXAMINATION: GENERAL: Well-appearing, well-nourished and in no acute distress. A&Ox4. Answers questions appropriately. Back: There is significant tenderness noted to the low back into the right buttock area. - Related Data Allergies/Adverse Reactions: No Known Allergies Allergy (Verified 06/10/18 10:20) Past Medical History Renal/ Medical History: Denies: Hx Peritoneal Dialysis Past Surgical History: Reports: Hx Oral Surgery, Other - Abscess to the neck that needed to go to surgery - Immunizations Immunizations up to date: Yes Hx Diphtheria, Pertussis, Tetanus Vaccination: Yes Physical Exam - Vital signs Vitals: Temp Pulse Resp BP Pulse Ox 97.6 F 76 16 107/63 96 04/23/19 12:26 04/23/19 12:26 04/23/19 12:26 04/23/19 12:26 04/23/19 12:26 Course - Vital Signs Vital signs: Temp Pulse Resp BP Pulse Ox 97.6 F 76 16 107/63 96 04/23/19 12:26 04/23/19 12:26 04/23/19 12:26 04/23/19 12:26 04/23/19 12:26
[2019-04-23 15:24] LABS: APPEARANCE,URINE SLIGHTLY-CLOUDY; BILIRUBIN,URINE NEGATIVE (NEGATIVE); COLOR,URINE YELLOW; GLUCOSE, URINE NEGATIVE (NEGATIVE); KETONES,URINE NEGATIVE (NEGATIVE); PROTEIN,URINE NEGATIVE (NEGATIVE); URINE SPECIFIC GRAVITY 1.016; UROBILINOGEN,URINE NEGATIVE mg/dL (<2.0)
[2019-04-23] MEDS ORDERED: KETOROLAC TROMETHAMINE 60 MG/2 ML SDV IM ONE (15:27)
--- NOTE | 2019-04-23 17:07 | ER Document Report ---
ED General - General Chief Complaint: Back Pain Stated Complaint: FALL//BACK PAIN Time Seen by Provider: 04/23/19 13:16 Primary Care Provider: BENI MIXON DO [Primary Care Provider] - Follow up in 3-5 days Mode of Arrival: Ambulatory Information source: Patient Notes: This 33-year-old female presents emergency department with complaints of severe back pain. Patient reports she has a history of fracture back T12 and L2 in February 22. She has been under the care of a neurosurgeon. She reports today she lifted her son who weighs approximately 26 pounds and turned and fell to the ground. Patient reports that since she fractured her back February 22 she has not really felt her anal sphincter. She reports she can control her bowel movements and voiding without any problems. She reports she just does not feel it. She reports she had a bowel movement and voided upon arrival to the emergency department today. She denies urinary bowel incontinence or retention. She denies fever vomiting diarrhea. She reports for she went to her primary care provider who referred her to urgent care who referred her to the ED. She reports she did call her neurosurgeon but they told her to come to the emergency department.. TRAVEL OUTSIDE OF THE [place] IN LAST 30 DAYS: No - HPI Onset: This morning Onset/Duration: Sudden Quality of pain: Pressure, Sharp Associated symptoms: None Exacerbated by: Supine, Movement Relieved by: Denies Similar symptoms previously: Yes Recently seen / treated by doctor: No - Related Data Allergies/Adverse Reactions: No Known Allergies Allergy (Verified 06/10/18 10:20) Home Medications: Percocet Past Medical History - General Information source: Patient Last Menstrual Period: dec irregular - Social History Smoking Status: Current Every Day Smoker Cigarette use (# per day): Yes Frequency of alcohol use: None Drug Abuse: None Lives with: Family Family History: Reviewed & Not Pertinent Patient has suicidal ideation: No Patient has homicidal ideation: No Renal/ Medical History: Denies: Hx Peritoneal Dialysis Traumatic Medical History: Reports: Hx Fractures - T12L2 Past Surgical History: Reports: Hx Oral Surgery, Other - Abscess to the neck that needed to go to surgery - Immunizations Immunizations up to date: Yes Hx Diphtheria, Pertussis, Tetanus Vaccination: Yes Review of Systems - Review of Systems Notes: Review HPI for review of systems., All other systems negative Physical Exam - Vital signs Vitals: Temp Pulse Resp BP Pulse Ox 97.6 F 76 16 107/63 96 04/23/19 12:26 04/23/19 12:26 04/23/19 12:26 04/23/19 12:04/23/19 12:26 - General General appearance: Alert, Anxious In distress: None - HEENT Head: Normocephalic Eyes: Normal Conjunctiva: Normal Extraocular movements intact: Yes Neck: Normal, Supple. No: Lymphadenopathy - Respiratory Respiratory status: No respiratory distress Chest status: Nontender Breath sounds: Normal Chest palpation: Normal - Cardiovascular Rhythm: Regular Heart sounds: Normal auscultation Murmur: No - Abdominal Inspection: Normal Distension: No distension Bowel sounds: Normal Tenderness: Nontender Organomegaly: No organomegaly - Back Back: Tender - Patient complains of tenderness to palpation T12 area. No erythema no swelling no obvious deformity. Patient also complains of pain rating down her right leg. - Extremities General upper extremity: Normal ROM General lower extremity: Normal ROM - Neurological Neuro grossly intact: Yes Cognition: Normal Orientation: AAOx4 Brandie Coma Scale Eye Opening: Spontaneous Brandie Coma Scale Verbal: Oriented Brandie Coma Scale Motor: Obeys Commands Brandie Coma Scale Total: 15 Speech: Normal - Psychological Associated symptoms: Normal affect, Normal mood - Skin Skin Temperature: Warm Skin Moisture: Dry Skin Color: Normal Course - Re-evaluation Re-evalutation: 04/23/19 17:08 This 33-year-old female with history of fractured T12 L2 presents emergency department with complaints of severe back pain after she lifted her son out of the crib and twisted. She reports she immediately fell to the ground. Denies urinary bowel incontinence or retention. She does report that since fracturing her back on February 22 she has not really felt her anal sphincter. She reports she is able to control her bowel movements and voids without problems but just does not feel it. Patient also reports of pain when laying supine. And also reports the pain radiates down her right leg. Lumbar Spine MRI 04/23/19 13:29 IMPRESSION: Subacute compression changes at T12. There is no retropulsion of bone into the spinal canal. No other significant finding. Laboratory 04/23/19 13:35 Urine Color YELLOW Urine Appearance SLIGHTLY-CLOUDY Urine pH 7.0 Ur Specific [place] 1.016 Urine Protein NEGATIVE Urine Glucose (UA) NEGATIVE Urine Ketones NEGATIVE Urine Blood NEGATIVE Urine Nitrite (Reflex) NEGATIVE Urine Bilirubin NEGATIVE Urine Urobilinogen NEGATIVE Leukocyte Esterase Rfl NEGATIVE Urine RBC (Auto) 1 Urine WBC (Reflex) < 1 Squamous Epi Cells Auto 1 Urine Mucus (Auto) OCC Urine Ascorbic Acid NEGATIVE Urine HCG, Qual NEGATIVE 04/23/19 18:[address] Chao. I attempted to contact [facility] without success. Patient instructed on MRI results. Patient reports she feels much better after the Toradol injection. Reports pain was 4/5 which is now 2/5. She was able to get up and walk around the room without any problems. She was instructed on Percocet for the pain and muscle relaxer. She reports she was taking baclofen for the muscle relaxer in the past. Patient prescriptions were sent to [facility] because her normal pharmacy renal will close at 7. Patient was given a copy of her MRI results. She was instructed on the importance of follow-up with her neurosurgeon tomorrow with this report. She was instructed to return immediately for worsening pain urinary bowel incontinence or retention. She verbalized understanding to all instructions. - Vital Signs Vital signs: Temp Pulse Resp BP Pulse Ox 98.1 F 77 18 111/69 100 04/23/19 18:44 04/23/19 18:44 04/23/19 18:44 04/23/19 18:44 04/23/19 18:44 - Diagnostic Test Radiology reviewed: Reports reviewed Discharge - Discharge Clinical Impression: Back pain Qualifiers: Back pain location: thoracic back pain Chronicity: unspecified Back pain laterality: midline Qualified Code(s): M54.6 - Pain in thoracic spine Condition: Stable Disposition: HOME, SELF-CARE Instructions: Ice Packs ([facility]), Muscle Relaxers ([facility]), Oral Narcotic Medication ([facility]), Steroid Medication Injection, Toradol Injection ([facility]) Additional Instructions: *You have been evaluated for back pain with prior history of fracture. *Your MRI showed a subacute compression changes at T12. There is no retropulsion of bone into the spinal canal. No other significant finding. *You have received Toradol and Decadron here in the emergency department *A prescription for Percocet and a muscle relaxer have been transmitted to [facility] on [facility] *Rest/Ice packs to your back, 20 minutes on 20 minutes off *Follow up with your neurosurgeon tomorrow with results of your MRI. *Return to ED for worsening condition, changes, needs, urinary or bowel incontinence or retention worsening pain, concerns Prescriptions: Baclofen [Baclofen 10 mg Tablet] 5 mg PO TID #15 tablet Oxycodone HCl/Acetaminophen [Percocet 5-325 mg Tablet] 1 tab PO ASDIR PRN #15 tablet PRN Reason: Referrals: BENI MIXON DO [Primary Care Provider] - Follow up in 3-5 days
--- NOTE | 2019-04-23 17:46 | RADIOLOGY REPORT (SQ) ---
EXAM DESCRIPTION: MRI LUMBAR SPINE WITHOUT COMPLETED DATE/TIME: 04/23/2019 5:05 pm REASON FOR STUDY: Low back pain COMPARISON: CT abdomen pelvis 06/10/2018 TECHNIQUE: Sagittal and Axial imaging includes T1, T2, STIR and gradient echo sequences. Coronal T2/ HASTE imaging. LIMITATIONS: None. FINDINGS: VISUALIZED UPPER ABDOMEN: Limited evaluation. No acute or suspicious findings suggested. SEGMENTATION: No transitional anatomy. The lowest well-developed disc space is labeled L5-S1. ALIGNMENT: Anatomic. VERTEBRAE: Compression changes are present at T12 with some marrow edema. BONE MARROW: There is moderate marrow edema at T12. DISC SIGNAL: Normal. No significant abnormal signal or loss of height. POSTERIOR ELEMENTS: Generally intact. No pars defect evident. HARDWARE: None in the spine. CORD AND CONUS: Normal in size and signal intensity. Conus at the T12-L1 level. SOFT TISSUES: No aortic aneurysm seen. No bulky retroperitoneal adenopathy or mass. No paraspinal mas s or fluid. T11-12: No significant spinal stenosis or exit foraminal stenosis. T12-L1: No significant spinal stenosis or exit foraminal stenosis. L1-L2: No significant spinal stenosis or exit foraminal stenosis. L2-L3: No significant spinal stenosis or exit foraminal stenosis. L3-L4: No significant spinal stenosis or exit foraminal stenosis. L4-L5: No significant spinal stenosis or exit foraminal stenosis. L5-S1: No significant spinal stenosis or exit foraminal stenosis. LOWER THORACIC: Incompletely imaged. No stenosis seen. SACRUM: Visualized upper sacrum intact. OTHER: No other significant findings. IMPRESSION: Subacute compression changes at T12. There is no retropulsion of bone into the spinal c anal. No other significant finding. TECHNICAL DOCUMENTATION: JOB ID: [id number] 2010 [employer]- All Rights Reserved Reading location - IP/workstation name: [email or web address]
[2019-04-23] MEDS ORDERED: DEXAMETHASONE SOD PHOSPHATE INJ 4 MG/1 ML VIAL IM ONE (18:19)
[2019-04-23] MEDS ORDERED: DEXAMETHASONE SOD PHOS INJ 10 MG/1 ML VIAL IM ONE (18:19)
[2019-04-23 18:45] VITALS: BP 111/69
== END 2019-04-23 18:50 | disposition home or self-care (01) ==
LOC: ER 12:21
DX: M54.6 Pain in thoracic spine (principal); F17.210 Nicotine dependence, cigarettes, uncomplicated
CPT/HCPCS: 99283; 96372; 81025; 81001; 72148; J1885; J1100

== ENCOUNTER → 2019-06-30 | Outpatient (CLI) | payer MEDICAID ==
--- NOTE | 2019-06-30 12:38 | RADIOLOGY REPORT (SQ) ---
EXAM DESCRIPTION: TOES RIGHT IMAGES COMPLETED DATE/TIME: 06/30/2019 12:10 pm REASON FOR STUDY: CONTUSION OF RIGHT LESSER TOE(S) W/O DAMAGE TO NAIL, INIT S90.121A CONTUSION OF R IGHT LESSER TOE(S) W/O DAMAGE TO NAIL COMPARISON: None. NUMBER OF VIEWS: Two views. TECHNIQUE: AP and oblique images acquired of the right fifth toe. LIMITATIONS: None. FINDINGS: MINERALIZATION: Normal. BONES: No acute fracture or dislocation. No worrisome bone lesions. JOINTS: No effusions. SOFT TISSUES: Soft tissue swelling about the lateral forefoot. No radiopaque foreign body. OTHER: No other significant finding. IMPRESSION: Soft tissue swelling about the lateral forefoot without acute bony abnormality. COMMENT: SITE OF TRAUMA/COMPLAINT MARKED/STAMP COMPLETED: NO. TECHNICAL DOCUMENTATION: JOB ID: [id number] 2010 [employer]- All Rights Reserved Reading location - IP/workstation name: [email or web address]
== END ==
LOC: OD 11:52
PROVIDERS: ATTEND Nurse Practitioner Family
DX: S90.121A Contusion of right lesser toe(s) without damage to nail, initial encounter (principal); X58.XXXA Exposure to other specified factors, initial encounter